=== PATIENT | female | born 1955 | race Caucasian/White ===

== ENCOUNTER → 2016-04-08 | Outpatient (CLI) | payer BC ==
--- NOTE | 2016-04-08 12:01 | EST ---
DATE OF SERVICE: 04/08/2016 AGE: 61Y SEX: F HT: 62" WT: 210 lbs. Protocol Ed: X Other: Stress Stage: 3 Dur. of Exercise: 7:10 *Heart Rate Blood Pressure *Rest: 73 Rest: 123/70 * *Max. Achieved: 141 Maximum BP: 182/85 85% PMHR: 136 100% PMHR: 160 *METS: 8.7 INDICATIONS: Chest pain. MEDICATIONS: Zoloft, Lipitor, Flonase, aspirin. Baseline EKG revealed a normal sinus rhythm with nonspecific precordial T-wave abnormality. Patient walked on standard Ed protocol for 7 minutes 10 seconds, achieved a maximum heart rate of 141 beats per minute, which is more than 85% of predicted maximum. She developed fatigue and shortness of breath, but did not have any angina. EKG did not reveal any ST segment changes to indicate ischemia. There was no arrhythmia. By EKG criteria, this is a negative stress test with fair exercise capacity.
== END | disposition home or self-care (01) ==
LOC: RADNMMAIN 10:29
PROVIDERS: ATTEND Family Medicine
DX: R07.89 Other chest pain (principal)
CPT/HCPCS: 93017

== ENCOUNTER → 2016-05-11 | Outpatient (CLI) | payer BC ==
[2016-05-11 12:42] LABS: CH 30.9; CHCM 34.7; HCT 41.1 % (34.0-46.0); HDW 2.54; MCH 30.4 pg (25.0-35.0); MCHC 34.1 g/dL (31.0-37.0); MCV 89.2 fL (80.0-100.0); Mean Platelet Volume 7.2; RBC 4.61 m/uL (3.80-5.40); RDW 12.3 % (11.5-15.5); WBC 6.7 k/uL (3.8-10.6)
[2016-05-11 13:04] LABS: Anion Gap 14 mmol/L; Blood Urea Nitrogen 14 mg/dL (7-17); Carbon Dioxide 25 mmol/L (22-30); Chloride 103 mmol/L (98-107); Non-African American GFR(MDRD) >60 (>60 ml/min/1.73 sqM); Potassium 4.8 mmol/L (3.5-5.1); Sodium 142 mmol/L (137-145)
== END | disposition home or self-care (01) ==
LOC: LABPAT 12:08
PROVIDERS: ATTEND Internal Medicine Interventional Cardiology
DX: Z01.812 Encounter for preprocedural laboratory examination (principal); R07.9 Chest pain, unspecified; R06.02 Shortness of breath
CPT/HCPCS: 80051; 82565; 84520; 85027

== ENCOUNTER 2016-05-26 06:20 | Day surgery (SDC) | payer BC, OTHER ==
[2016-05-21 11:16] VITALS: BMI 36.6
[~2016-05-26 06:20] MED LIST: ALPRAZolam 0.25 MG TAB PO PRN; ALPRAZolam 0.5 MG TAB PO PRN; ASPIRIN 325 MG TAB PO STA; ATORVASTATIN 80 MG TAB PO STA; NITROGLYCERIN SL TABS 0.4 MG TAB SUBLINGUAL PRN; SODIUM CHLORIDE 0.9% 1,000 ML in EMPTY BAG 1 BAG IV ONE
[2016-05-26 07:08] VITALS: TEMP 97.9
[2016-05-26] MEDS ORDERED: VERAPAMIL 2.5 MG/ML 2 ML AMP ONE (07:12)
[2016-05-26] MEDS ORDERED: LIDOCAINE 2% INJ 20 MG/ML (20 ML MDV) ONE (07:12)
[2016-05-26] MEDS ORDERED: SODIUM CHLORIDE 0.9% (PF) 10 ML VIAL ONE (07:12)
[2016-05-26] MEDS ORDERED: fentaNYL (PF) 50 MCG/ML 2 ML AMP ONE (07:13)
[2016-05-26] MEDS ORDERED: diphenhydrAMINE 50 MG/ML 1 ML VIAL ONE (07:13)
[2016-05-26] MEDS ORDERED: diphenhydrAMINE 50 MG/ML 1 ML VIAL IVP ONE (07:31)
[2016-05-26] MEDS ORDERED: fentaNYL (PF) 50 MCG/ML 2 ML AMP IV ONE (07:31)
[2016-05-26] MEDS: VERAPAMIL SYRINGE (5 MG/10 ML) INTRAARTER ONE ×2 (07:34→07:51)
[2016-05-26] MEDS ORDERED: HEPARIN SODIUM 1,000 UNIT/ML VIAL ONE (07:34)
[2016-05-26] MEDS ORDERED: LIDOCAINE 2% INJ 20 MG/ML SQ ONE (07:40)
[2016-05-26] MEDS ORDERED: IOHEXOL 350 MG/ML 100 ML BOTTLE INJ ONE (08:09)
[2016-05-26] MEDS ORDERED: RX INFO: IV CONTRAST WAS GIVEN 1 EACH MISC MISCELLANE PRN (08:25)
[2016-05-26] MEDS ORDERED: SODIUM CHLORIDE 0.9% 1,000 ML IV SCH (08:30)
--- NOTE | 2016-05-26 08:32 | CC ---
DATE OF SERVICE: Mrs. Valerio is a 61-year-old female with known history of hyperlipidemia. Family history of coronary artery disease who has been complaining of chest discomfort was physical activity associated with dyspnea radiating to the left arm. Because of her persistent symptoms, recommendations regarding cardiac catheterization, the procedure as well as risks and complications were discussed with the patient who is in full understanding and agreement. PROCEDURE: Patient was brought to the [facility] [employer] [facility] in a fasting semi-sedated state after receiving fentanyl and Benadryl. She was draped and prepped in conventional fashion. Using Xylocaine anesthesia and Seldinger technique, a 6 Hungarian sheath was introduced in the right radial artery. Selective right and left coronary angiography was performed using 5 Hungarian 3-1/2 Bend right Tori catheter and a 5 Hungarian multipurpose V2 to cannulate the left coronary. There was severe tortuosity preventing the advancement of 3.5 Tori and the Leila catheter. Images of the coronary arteries including hemiaxial views were obtained. Following that, a 5 Hungarian tight pigtail catheter was introduced into the left ventricle and a 30 degree GURROLA view of the left ventricle was obtained. Following that, catheter and sheaths were removed. Hemostasis was obtained with deployment of TR band. There was no complication. Patient is returned to her room in stable condition. Of note, patient received 45 units of intravenous heparin as well as intra-arterial verapamil. FINDINGS: LEFT MAIN: This is a large-size vessel bifurcating into the left circumflex, left anterior descending artery. The left main coronary artery is without any obstructive disease. LEFT ANTERIOR DESCENDING ARTERY: This is a large-size vessel reaching toward the apex, tapers down the distal third giving rise to a moderately-sized diagonal branch. The left anterior descending artery as well as branches have no evidence of obstructive lung disease. LEFT CIRCUMFLEX: This is a nondominant vessel, giving rise to 2 obtuse marginal branches. The left circumflex as well as branches have no evidence of obstructive lung disease. RIGHT CORONARY ARTERY: This is a large dominant vessel bifurcating distally to into PDA and posterolateral segment and branches. The right coronary artery as well as its branches have no evidence of obstructive coronary artery disease. LEFT VENTRICULOGRAM: Left ventriculogram was performed in 30 degree GURROLA view and revealed normal left ventricular size and systolic function. Ejection fraction is 60%. There was no significant mitral regurgitation. HEMODYNAMICS: There was no gradient across the aortic valve. The left ventricle end-diastolic pressure was 12 mmHg. The duration of the procedure was 30 minutes. IMPRESSION: 1. Normal coronary arteries. 2. Normal left ventricular size and systolic function. RECOMMENDATIONS: In view of finding anatomy, recommend to continue medical therapy with the aggressive risk modifications being initiated. Those findings and recommendations were discussed with the patient and her family who is in full understanding and agreement.
--- NOTE | 2016-05-26 08:35 | LTR ---
May 26, 2016 RE: Madhuri Valerio Dear Dr. Moreno; I had the pleasure to perform cardiac catheterization on Mrs. Valerio at [facility] on May 26, 2016 and a full copy of the procedure note will be forwarded to you. In brief, she was found to have no evidence of obstructive coronary artery disease with normal left ventricular size and systolic function and in view of that, I have recommended to continue medical therapy with aggressive coronary risk modification that has been initiated. Thank you again for allowing me to participate in this patient's care. Please feel free to call for any questions. Sincerely yours, MARISOL SEVERINO MD
[2016-05-26] MEDS ORDERED: MOMETASONE FUROATE NASAL SCH (09:00)
[2016-05-26] MEDS ORDERED: VIT A,C & E-LUTEIN-MINERALS 1 EACH TAB PO SCH (09:00)
[2016-05-26] MEDS ORDERED: CHOLECALCIFEROL 1,000 UNIT TAB PO SCH (12:00)
[2016-05-26 12:32] VITALS: BP 123/85; PULSE 60; RESP 16
[2016-05-26] MEDS ORDERED: ATORVASTATIN 20 MG TAB PO SCH (21:00)
[2016-05-27] MEDS ORDERED: ASPIRIN 81 MG CHEW PO SCH (09:00)
[2016-05-27] MEDS ORDERED: SERTRALINE 25 MG TAB PO SCH (09:00)
[2016-05-27] MEDS ORDERED: ISOSORBIDE MONONITRATE ER 15 MG TAB PO SCH (09:00)
--- NOTE | 2016-05-28 07:50 | CDI ---
Pt Name: Madhuri Valerio CONFIDENTIAL MR#: [id number] Adm Date: 05/26/2016 6:20:00 AM Printed:05/28/2016 Physician Documentation Request Page 1 of 1 ICD-10-CM Ready Physicians Documentation Request Patient: Madhuri Valerio EPI: [id number] Account: [id number] Payer: [facility] Facility: [facility] Location: - Admit Date: 05/26/2016 6:20:00 AM Query Send By: Herlinda Mart Phone #: Ext. Communication Date: 05/28/2016 7:44:00 AM Clarification Outpatient By submitting this query, we are merely seeking further clarification of documentation to accurately reflect all conditions that you are monitoring, evaluating, treating or that extend the hospitalization or utilize additional resources of care. Please utilize your independent clinical judgment when addressing the question(s) below. Dear Doctor Angel Cordoba, The patients Clinical Indicators include: see below Documentation Clarification OP The cardiac cath report states the patient was in a "semi-sedated state after receiving fentanyl and Benadryl." Please clarify what level of sedation was used for this procedure, such as moderate. This is important information in order to accurately code and bill for this encounter. Please issue an addendum to your report. Thank you! PLEASE DOCUMENT ANY ADDITIONAL DIAGNOSES AND/OR SPECIFICITY IN THE PROGRESS NOTES AND/OR DISCHARGE SUMMARY. Agreed & documented Unable to determine/unknown Disagree with the above request Need to discuss MTDD
--- NOTE | 2016-06-02 14:57 | CDI ---
Pt Name: Madhuri Valerio CONFIDENTIAL MR#: [id number] Adm Date: 05/26/2016 6:20:00 AM Printed:06/02/2016 Physician Documentation Request Page 1 of 2 ICD-10-CM Ready Physicians Documentation Request Patient: Madhuri Valerio EPI: [id number] Account: [id number] Payer: [facility] Facility: [facility] Location: - Admit Date: 05/26/2016 6:20:00 AM Query Send By: Herlinda Mart Phone #: Ext. Communication Date: 06/02/2016 2:54:00 PM Clarification Outpatient By submitting this query, we are merely seeking further clarification of documentation to accurately reflect all conditions that you are monitoring, evaluating, treating or that extend the hospitalization or utilize additional resources of care. Please utilize your independent clinical judgment when addressing the question(s) below. Dear Doctor Angel Cordoba, The patients Clinical Indicators include: see below Documentation Clarification OP The cardiac cath report states the patient was in a "semi-sedated state after receiving fentanyl and Benadryl." Please clarify what level of sedation was used for this procedure, such as moderate. This is important information in order to accurately code and bill for this encounter. Please issue an addendum to your report. Thank you! PLEASE DOCUMENT ANY ADDITIONAL DIAGNOSES AND/OR SPECIFICITY IN THE PROGRESS NOTES AND/OR DISCHARGE SUMMARY. Agreed & documented Unable to determine/unknown Disagree with the above request Need to discuss MTDD
--- NOTE | 2016-06-09 08:31 | CDI ---
Physicians Documentation Request Patient: Madhuri Valerio EPI: [id number] Account: [id number] Payer: [facility] Facility: [facility] Location: - Admit Date: 05/26/2016 6:20:00 AM Query Send By: Herlinda Mart Phone #: Ext. Communication Date: 06/09/2016 8:27:00 AM Clarification Outpatient By submitting this query, we are merely seeking further clarification of documentation to accurately reflect all conditions that you are monitoring, evaluating, treating or that extend the hospitalization or utilize additional resources of care. Please utilize your independent clinical judgment when addressing the question(s) below. Dear Doctor Angel Cordoba, The patients Clinical Indicators include: see below Documentation Clarification OP The cardiac cath report states "semi-sedated state after receiving fentanyl and Benadryl." Will you please clarify the level of sedation, such as moderate. This information is required for proper coding and billing purposes. Please answer as an addendum to your op report. If you don't understand what is needed , please contact my showplace manager, Vandana Garcia . Thank you. PLEASE DOCUMENT ANY ADDITIONAL DIAGNOSES AND/OR SPECIFICITY IN THE PROGRESS NOTES AND/OR DISCHARGE SUMMARY. Agreed & documented Unable to determine/unknown Disagree with the above request Need to discuss MTDD
--- NOTE | 2016-06-12 11:33 | CC ---
ADDENDUM TO CARDIAC CATHETERIZATION REPORT: The sedation was moderate instead of semi-sedated.
== END 2016-05-26 13:17 | disposition home or self-care (01) ==
LOC: CATHCVL 06:20
PROVIDERS: ATTEND Internal Medicine Interventional Cardiology
DX: I20.8 Other forms of angina pectoris (principal); R06.00 Dyspnea, unspecified; R53.1 Weakness; R11.0 Nausea; R42 Dizziness and giddiness; E78.2 Mixed hyperlipidemia; Z82.49 Family history of ischemic heart disease and other diseases of the circulatory system; E78.00 Pure hypercholesterolemia, unspecified; Z79.82 Long term (current) use of aspirin; Z79.899 Other long term (current) drug therapy; Z87.891 Personal history of nicotine dependence
CPT/HCPCS: 93458; 99152; 99153 ×2; C1894; C1769 ×2; J2001; J1200; Q9967; J3010; J1644

== ENCOUNTER → 2016-07-01 | Outpatient (CLI) | payer BC ==
--- NOTE | 2016-07-01 12:50 | MM ---
Reason for exam: follow-up at short interval from prior study. Last mammogram was performed 6 months ago. History: Patient is postmenopausal. Family history of breast cancer in aunt at age 80 and breast cancer in mother at age 72. Physical Findings: Nurse did not find any significant physical abnormalities on exam. MG Diagnostic Mammo RT w CAD CC and MLO view(s) were taken of the right breast. Prior study comparison: December 30, 2015, right breast MG work up mamm w CAD RT. December 20, 2015, bilateral MG screening mammo w CAD. The breast tissue is heterogeneously dense. This may lower the sensitivity of mammography. Finding: There are typically benign round calcifications in the right breast. There is no discrete abnormality. These results were verbally communicated with the patient and result sheet given to the patient on 07/01/16. ASSESSMENT: Benign, BI-RAD 2 RECOMMENDATION: Return to routine screening mammogram schedule for both breasts. Back on schedule.
== END | disposition home or self-care (01) ==
LOC: RADMAMWWP 10:15
PROVIDERS: ATTEND Family Medicine
DX: R92.8 Other abnormal and inconclusive findings on diagnostic imaging of breast (principal)

== ENCOUNTER → 2016-12-24 | Outpatient (CLI) | payer BC ==
--- NOTE | 2016-12-28 10:56 | MM ---
Reason for exam: screening (asymptomatic). Last mammogram was performed 6 months ago. History: Patient is postmenopausal. Family history of breast cancer in aunt at age 80 and breast cancer in mother at age 72. Physical Findings: A clinical breast exam by your physician is recommended on an annual basis and results should be correlated with mammographic findings. MG Screening Mammo w CAD Bilateral CC and MLO view(s) were taken. Prior study comparison: December 20, 2015, bilateral MG screening mammo w CAD. August 31, 2014, bilateral MG screening mammo w CAD. August 03, 2013, bilateral MG screening mammo w CAD. The breast tissue is heterogeneously dense. This may lower the sensitivity of mammography. Finding: There are typically benign round calcifications in both breasts. There is a chronic nodularity in the left breast. There is no discrete abnormality. ASSESSMENT: Benign, BI-RAD 2 RECOMMENDATION: Routine screening mammogram of both breasts in 1 year.
== END | disposition home or self-care (01) ==
LOC: RADMAMWWP 09:40
PROVIDERS: ATTEND Family Medicine
DX: Z12.31 Encounter for screening mammogram for malignant neoplasm of breast (principal)

== ENCOUNTER 2017-07-07 09:29 | Day surgery (SDC) | payer BC ==
[2017-07-06 10:35] VITALS: BMI 32.9
[~2017-07-07 09:29] MED LIST changes: -ALPRAZolam 0.25 MG TAB PO PRN; -ALPRAZolam 0.5 MG TAB PO PRN; -ASPIRIN 325 MG TAB PO STA; -ATORVASTATIN 80 MG TAB PO STA; +LACTATED RINGERS 1,000 ML IV SCH; +LIDOCAINE 1% 20 ML VIAL (10MG/ML) FOR IV START INTRADERMA PRN; -NITROGLYCERIN SL TABS 0.4 MG TAB SUBLINGUAL PRN; -SODIUM CHLORIDE 0.9% 1,000 ML in EMPTY BAG 1 BAG IV ONE
[2017-07-07 10:32] VITALS: TEMP 97.6
[2017-07-07] MEDS ORDERED: PROPOFOL 10 MG/ML 20 ML VIAL IV ONE (11:05)
--- NOTE | 2017-07-07 11:16 | P.PCN ---
Date of Procedure: 07/07/17 Procedure(s) Performed: BRIEF HISTORY: Patient is a 62-year-old, pleasant, white female, scheduled for an upper endoscopy as a part of evaluation of throat irritation, throat discomfort and intermittent dysphagia for the last 2 months duration. She denies any heartburn.. PROCEDURE PERFORMED: Esophagogastroduodenoscopy with biopsy. PREOPERATIVE DIAGNOSIS: Throat irritation and intermittent dysphagia to solids. IV sedation per anesthesia. PROCEDURE: After informed consent was obtained, the patient was brought into the endoscopy unit. IV sedation was administered by Anesthesia under continuous monitoring. Initially the Olympus GIF-140 video endoscope was inserted into the mouth. Esophagus intubated without any difficulty. It was gradually advanced into the stomach and duodenum and carefully examined. The bulb and the second part of the duodenum appeared normal. The scope at this time was withdrawn to the stomach, adequately insufflated with air, and upon careful examination, mucosa of the antrum, had scattered areas of erythema and biopsies were done from this area. The body, cardia and the fundus appeared normal. The scope was then withdrawn into the esophagus. Small sliding Hiatal hernia noted. The GE junction was located at 39 cm from the incisors. There was circumferential erythema the GE junction consistent with LA grade a reflux esophagitis. The rest of the esophagus appeared normal. Biopsies were done from the mid and distal esophagus and the patient tolerated the procedure well. IMPRESSION: 1. Mild antral gastritis. 2. Circumferential erythema the GE junction consistent with LA grade A reflux esophagitis and small hiatal hernia . RECOMMENDATIONS: The findings of this examination were discussed with the patient as well as her family. She was advised to follow with the biopsy results. Her symptoms may be related to GERD and hence she was advised to stop the Zantac and try Prilosec 20 mg daily half hour before breakfast for 8 weeks .
[2017-07-07 11:46] VITALS: RESP 16
[2017-07-07 11:47] VITALS: BP 120/66; PULSE 66
== END 2017-07-07 12:05 | disposition home or self-care (01) ==
LOC: ORWHC2ENDO 09:29
PROVIDERS: ATTEND Internal Medicine Gastroenterology
DX: K21.0 Gastro-esophageal reflux disease with esophagitis (principal); K29.50 Unspecified chronic gastritis without bleeding; K44.9 Diaphragmatic hernia without obstruction or gangrene; I10 Essential (primary) hypertension; E78.5 Hyperlipidemia, unspecified; Z79.51 Long term (current) use of inhaled steroids; Z79.899 Other long term (current) drug therapy
CPT/HCPCS: 88305; 43239; J2704

== ENCOUNTER → 2017-08-04 | Outpatient (CLI) | payer BC ==
--- NOTE | 2017-08-05 08:28 | CT ---
EXAMINATION TYPE: CT soft tissue neck w con DATE OF EXAM: 08/04/2017 HISTORY: Dysphagia, feeling of choking and reduced appetite x 3 months. COMPARISON: NONE CT DLP: 362.4 mGycm. Automated Exposure Control for Dose Reduction was Utilized. TECHNIQUE: CT scan of the neck is performed with IV Contrast, patient injected with 100 mL of Isovue M300, axial images are obtained, coronal and sagittal reformatted images are reviewed. FINDINGS: Airway: True and false vocal cords are unremarkable. Slight asymmetry of the vallecula is likely rela maria ines to patient positioning as no discrete mass is identified. Piriform sinuses are patent. No hypertr ophy of the tonsils. Torus tubarius and fossa of Rosenmuller are overall symmetric. Parotid/submandibular glands: No gross abnormality seen. Carotid/Vascular Structures: There is an aberrant subclavian artery with mass effect upon the upper c ervical esophagus impinging the esophagus between the trachea and the aberrant subclavian artery. Thi s can result in dysphagia lusoria. 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 Bilateral vertebral arteries appear patent. There is slight left carmine nant visualized [place] appears intact in its limited visualized portions. The carotid arter ies demonstrate no hemodynamically significant stenosis. Osseous Structures: The bladder mucosal thickening is seen within the paranasal sinuses including the visualized maxillary, ethmoid, and sphenoid sinuses. The frontal sinuses are aplastic. Moderate mult ilevel degenerative changes of the cervical spine are noted. Other: Lung apices demonstrate very minimal centrilobular emphysematous change. Nonenlarged left supr aclavicular lymph nodes are present. IMPRESSION: 1. 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 T his impinges the esophagus between the trachea and the aberrant subclavian artery. This may create dy sphasia (dysphagia lusoria). 2. Airway is patent and unremarkable. 3. Moderate pansinusitis.
== END ==
LOC: RADCTMAIN 18:30
PROVIDERS: ATTEND Family Medicine
DX: Q27.8 Other specified congenital malformations of peripheral vascular system (principal)
CPT/HCPCS: 70491; Q9967

== ENCOUNTER → 2018-01-27 | Outpatient (CLI) | payer BC, OTHER ==
--- NOTE | 2018-01-28 12:13 | MM ---
Reason for exam: screening (asymptomatic). Last mammogram was performed 1 year and 1 month ago. History: Patient is postmenopausal. Family history of breast cancer in aunt at age 80 and breast cancer in mother at age 72. Physical Findings: A clinical breast exam by your physician is recommended on an annual basis and results should be correlated with mammographic findings. MG 3D Screening Mammo W/Cad Bilateral CC and MLO view(s) were taken. Prior study comparison: December 24, 2016, bilateral MG screening mammo w CAD. July 01, 2016, right breast MG diagnostic mammo RT w CAD. The breast tissue is heterogeneously dense. This may lower the sensitivity of mammography. Stable benign calcifications. There is no discrete abnormality. No significant changes when compared with prior studies. ASSESSMENT: Benign, BI-RAD 2 RECOMMENDATION: Routine screening mammogram of both breasts in 1 year.
== END ==
LOC: RADMAMWWP 07:35
PROVIDERS: ATTEND Family Medicine
DX: Z12.31 Encounter for screening mammogram for malignant neoplasm of breast (principal)
CPT/HCPCS: 77063; 77067

== ENCOUNTER 2018-10-14 10:29 | Day surgery (SDC) | payer BC, OTHER ==
[2018-10-12 14:49] VITALS: BMI 29.6
[2018-10-14] MEDS ORDERED: ONDANSETRON 4 MG/2 ML VIAL IVP ONE (10:58)
[2018-10-14 11:20] VITALS: TEMP 98
[2018-10-14] MEDS ORDERED: LIDOCAINE 1% INJ 10MG/ML (20 ML MDV) ONE (11:20)
[2018-10-14] MEDS ORDERED: PROPOFOL 10 MG/ML 20 ML VIAL IV ONE (11:20)
[2018-10-14] MEDS ORDERED: IV FLUID CONTINUATION 800 ML IV ONE (11:53)
--- NOTE | 2018-10-14 12:05 | P.PCN ---
Date of Procedure: 10/14/18 Procedure(s) Performed: NBRIEF HISTORY: Patient is a 63-year-old pleasant white female, scheduled for an elective colonoscopy as a part of screening for colorectal neoplasia. PROCEDURE PERFORMED: Colonoscopy with snare polypectomy. PREOPERATIVE DIAGNOSIS: Screening for colon cancer. IV sedation per Anesthesia. PROCEDURE: After informed consent was obtained, the patient, was brought into the endoscopy unit. IV sedation was administered by Anesthesia under continuous monitoring. Digital rectal examination was normal. Initially the Olympus CF-160 flexible video colonoscope was then inserted in the rectum, gradually advanced into the cecum without any difficulty. Careful examination was performed as the scope was gradually being withdrawn. Ileocecal valve and the appendiceal orifice were visualized and appeared normal. Prep was excellent. Mucosa of the cecum, appeared normal. In the ascending colon there was a 1 cm broad-based polyp removed by snare polypectomy. In the transverse colon there was a 5 mm polyp removed by snare polypectomy. Rest of ascending colon, transverse colon, shana cending colon, sigmoid colon, and rectum appeared normal. Retroflexion was performed in the rectum and no lesions were seen. Scattered left-sided diverticulosis seen. The patient tolerated the procedure well. IMPRESSION: 1 cm broad-based ascending colon polyp status post polypectomy 5 mm transverse colon polyp status post polypectomy Scattered sigmoid diverticulosis RECOMMENDATIONS: Findings of this examination were discussed with the patient as well as a family. She was advised to follow with the biopsy results. If the biopsy shows an adenoma, she can have a repeat colonoscopy in 3-5 years. o
[2018-10-14 12:15] VITALS: RESP 18
[2018-10-14 12:53] VITALS: BP 122/60; PULSE 60
== END 2018-10-14 12:22 | disposition home or self-care (01) ==
LOC: ORWHC2ENDO 10:29
PROVIDERS: ATTEND Internal Medicine Gastroenterology
DX: Z12.11 Encounter for screening for malignant neoplasm of colon (principal); D12.2 Benign neoplasm of ascending colon; K63.5 Polyp of colon; K57.30 Diverticulosis of large intestine without perforation or abscess without bleeding; E78.5 Hyperlipidemia, unspecified; I25.10 Atherosclerotic heart disease of native coronary artery without angina pectoris; K21.9 Gastro-esophageal reflux disease without esophagitis; Z79.82 Long term (current) use of aspirin; Z79.899 Other long term (current) drug therapy
CPT/HCPCS: 88305; 45385; J2405; J2001; J2704

== ENCOUNTER → 2019-03-07 | Outpatient (CLI) | payer BC ==
--- NOTE | 2019-03-08 13:49 | MM ---
Reason for exam: screening (asymptomatic). Last mammogram was performed 1 year and 1 month ago. History: Patient is postmenopausal. Family history of breast cancer in aunt at age 80 and breast cancer in mother at age 72. Physical Findings: A clinical breast exam by your physician is recommended on an annual basis and results should be correlated with mammographic findings. MG 3D Screening Mammo W/Cad Bilateral CC and MLO view(s) were taken. Prior study comparison: January 27, 2018, bilateral MG 3d screening mammo w/cad. December 24, 2016, bilateral MG screening mammo w CAD. The breast tissue is heterogeneously dense. This may lower the sensitivity of mammography. Finding #1: There is a 9 mm obscured oval mass located 5-6 cm from the nipple in the middle position of the right breast. Finding #2: There are typically benign round calcifications in both breasts. New finding since January 27, 2018. ASSESSMENT: Incomplete: need additional imaging evaluation, BI-RAD 0 RECOMMENDATION: Special view mammogram and ultrasound of the right breast. [facility] will attempt to contact patient to return for supplemental views and ultrasound.
== END | disposition home or self-care (01) ==
LOC: RADMAMWWP 07:19
PROVIDERS: ATTEND Family Medicine
DX: Z12.31 Encounter for screening mammogram for malignant neoplasm of breast (principal)
CPT/HCPCS: 77063; 77067

== ENCOUNTER → 2019-03-31 | Outpatient (CLI) | payer BC ==
--- NOTE | 2019-03-31 11:06 | MM ---
Reason for exam: additional evaluation requested from abnormal screening. Last mammogram was performed 1 month ago. History: Patient is postmenopausal. Family history of breast cancer in aunt at age 80 and breast cancer in mother at age 72. Physical Findings: Nurse did not find any significant physical abnormalities on exam. MG 3D Work Up W/Cad RT Spot compression CC, spot compression MLO, and ML view(s) were taken of the right breast. Prior study comparison: March 07, 2019, bilateral MG 3d screening mammo w/cad. January 27, 2018, bilateral MG 3d screening mammo w/cad. The breast tissue is heterogeneously dense. This may lower the sensitivity of mammography. No distinct lesion persists on additional views. These results were verbally communicated with the patient and result sheet given to the patient on 03/31/19. ASSESSMENT: Benign, BI-RAD 2 RECOMMENDATION: Return to routine screening mammogram schedule for both breasts.
== END | disposition home or self-care (01) ==
LOC: RADMAMWWP 10:12
PROVIDERS: ATTEND Family Medicine
DX: R92.8 Other abnormal and inconclusive findings on diagnostic imaging of breast (principal)
CPT/HCPCS: 77061; 77065

== ENCOUNTER 2019-06-08 13:14 | Emergency (ER) | payer BC ==
[2019-06-08 13:20] VITALS: BP 130/80; PULSE 69; RESP 18; TEMP 98.2
--- NOTE | 2019-06-08 13:50 | XR ---
EXAMINATION TYPE: XR ankle complete LT DATE OF EXAM: 06/08/2019 CLINICAL HISTORY: Twisting injury today with pain. TECHNIQUE: Frontal, lateral and oblique images of the left ankle are obtained. COMPARISON: None. FINDINGS: There is no acute fracture/dislocation evident in the left ankle. The ankle mortise appea rs within normal limits. Moderate soft tissue swelling over the lateral malleolus. Moderate to large size inferior calcaneal spur. IMPRESSION: There is soft tissue swelling without acute fracture or dislocation in the left ankle.
--- NOTE | 2019-06-08 13:52 | XR ---
EXAMINATION TYPE: XR ribs LT DATE OF EXAM: 06/08/2019 COMPARISON: NONE HISTORY: Left rib pain after fall TECHNIQUE: 2 views of the left ribs were obtained FINDINGS: No acute displaced fracture is seen of the left ribs. Mild acromioclavicular arthropathy on the left is incidentally seen. No healed chronic left rib fracture deformity. Left lung remains well aerated. Tortuosity of the descending thoracic aorta is seen. IMPRESSION: No acute displaced left rib fracture seen.
--- NOTE | 2019-06-08 14:08 | ED ---
Lower Extremity Injury HPI - General Chief Complaint: Extremity Injury, Lower Stated Complaint: L ankle Injury Time Seen by Provider: 06/08/19 13:21 Source: patient Mode of arrival: wheelchair Limitations: no limitations - History of Present Illness Initial Comments: Patient is a 64-year-old female presenting to the emergency room with a chief complaint of left ankle pain. Patient reports she was walking down on a step in her basement when she tripped and inverted her left ankle. Patient also reports falling on the left side of her body. Patient reports immediate swelling and pain in the left ankle. Denies any discoloration or ecchymosis. The report applying immediate ice compress which helped alleviate some of the symptoms. Patient reports pain with ambulation dorsiflexion and plantar flexion. She does report limited range of motion. Also reports some left flank pain. Says the pain is reproducible with palpation. Does report taking [id number] analgesics prior to ED arrival. Patient is not on blood thinners. - Related Data Home Medications Medication Instructions Recorded Confirmed Aspirin 81 mg PO DAILY 09/13/13 10/14/18 Atorvastatin [Lipitor] 20 mg PO HS 09/13/13 10/14/18 Cholecalciferol [Vitamin D3] 2,000 unit PO DAILY 09/13/13 10/14/18 Sertraline [Zoloft] 75 mg PO DAILY 09/13/13 10/14/18 Vits A,C,E/Lutein/Minerals 1 each PO DAILY 05/21/16 10/14/18 [Ocuvite with Lutein Tablet] Flaxseed Oil [Sharon-3 Flaxseed Oil] 1,000 mg PO DAILY 07/06/17 10/14/18 Fluticasone Nasal [place] [Flonase 1 spray EA NOSTRIL DAILY PRN 07/06/17 10/14/18 Nasal [place]] Ranitidine HCl [Zantac] 150 mg PO BID 07/06/17 10/14/18 Allergies Allergy/AdvReac Type Severity Reaction Status Date / Time No Known Allergies Allergy Verified 06/08/19 13:20 Review of Systems ROS Statement: Those systems with pertinent positive or pertinent negative responses have been documented in the HPI. ROS Other: All systems not noted in ROS Statement are negative. Past Medical History Past Medical History: Chest Pain / Angina, GERD/Reflux, Hyperlipidemia Additional Past Medical History / Comment(s): DIVERTICULOSIS, ENVIRONMENTAL ALLERGIES. History of Any Multi-Drug Resistant Organisms: None Reported Past Surgical History: Cholecystectomy, Heart Catheterization, Hysterectomy, Tonsillectomy Additional Past Surgical History / Comment(s): laparoscopy, Heart Cath ([facility] 2017) colonoscopy, arterial bypass rt side at [facility], Past Anesthesia/Blood Transfusion Reactions: Postoperative Nausea & Vomiting (PONV) Past Psychological History: Anxiety Smoking Status: Former smoker - Past Family History Mother Family Medical History: Cancer Additional Family Medical History / Comment(s): BREAST CANCER Father Family Medical History: Cancer Additional Family Medical History / Comment(s): PROSTATE CANCER General Exam Limitations: no limitations General appearance: alert, in no apparent distress, obese Head exam: Present: atraumatic, normocephalic, normal inspection Eye exam: Present: normal appearance, PERRL, EOMI Pupils: Present: normal accommodation ENT exam: Present: normal exam Neck exam: Present: normal inspection, full ROM Cardiovascular Exam: Present: regular rate, normal rhythm, normal heart sounds Extremities exam: Present: full ROM (Limited range of motion with dorsi and plantar flexion.), tenderness (Tenderness along the lateral and medial malleolus of the left ankle. No midfoot or fifth metatarsal tenderness.), normal capillary refill, other (+2 dorsalis pedis and posterior tibialis bilaterally.). Absent: normal inspection (Swelling on the lateral malleolus of the left ankle .) Back exam: Present: normal inspection, full ROM Neurological exam: Present: alert, oriented X3 Psychiatric exam: Present: normal affect, normal mood Skin exam: Present: warm, dry, intact, normal color Course Vital Signs 06/08/19 13:18 Temperature 98.2 F Pulse Rate 69 Respiratory 18 Rate Blood Pressure 130/80 O2 Sat by Pulse 99 Oximetry Procedures - Orthopedic Splinting/Casting Injury #1 Side: left Lower Extremity Injury Location: ankle Lower Extremity Immobilizer: Rd wrap Medical Decision Making - Medical Decision Making patient is 64-year-old female presenting to emergency Department with chief complaint of ankle pain. Exam reveals left lateral malleolus pain and swelling. No erythema or ecchymosis. Negative anterior drawer. X-rays unremarkable. She does have some reproducible left flank tenderness. Chest x-ray with dedicated ribs is unremarkable. Rd wrap applied. Patient states urinary has crutches. She was advised to follow with smart energy specialist. Advised to alternate between Tylenol and Motrin for pain control. Return parameters thoroughly discussed with patient was understanding and agreeable. Case discussed with physician. Disposition Clinical Impression: Left ankle sprain, Fall, Left flank pain Disposition: HOME SELF-CARE Condition: Good Instructions (If sedation given, give patient instructions): Ankle Sprain (ED) Additional Instructions: Follow-up with smart energy specialist. Apply ice compresses, alternate between Tylenol and Motrin for pain control, keep the foot elevated above heart level. We are compression on the ankle. Return to emergency department if symptoms worsen Is patient prescribed a controlled substance at d/c from ED?: No Referrals: Ronny Moreno MD [Primary Care Provider] - 1-2 days Time of Disposition: 14:07
== END 2019-06-08 14:20 | disposition home or self-care (01) ==
LOC: EC 13:14
DX: S93.402A Sprain of unspecified ligament of left ankle, initial encounter (principal); R10.9 Unspecified abdominal pain; K21.9 Gastro-esophageal reflux disease without esophagitis; E78.5 Hyperlipidemia, unspecified; F41.9 Anxiety disorder, unspecified; Z79.82 Long term (current) use of aspirin; Z79.899 Other long term (current) drug therapy; Z87.891 Personal history of nicotine dependence; Z95.1 Presence of aortocoronary bypass graft; W01.0XXA Fall on same level from slipping, tripping and stumbling without subsequent striking against object, initial encounter; Y93.01 Activity, walking, marching and hiking
CPT/HCPCS: 99283

== ENCOUNTER → 2019-10-02 | Outpatient (CLI) | payer BC ==
--- NOTE | 2019-10-02 21:37 | MR ---
EXAMINATION TYPE: MR cervical spine wo con DATE OF EXAM: 10/02/2019 COMPARISON: None HISTORY: Headaches, neck Pain and Right arm weakness CONTRAST: Performed utilizing 0 mL intravenous Gadavist gadolinium contrast. TECHNIQUE: Multiplanar multiecho imaging on a 3.0 Marla magnet is performed through the cervical spin e. FINDINGS: The craniovertebral junction is normal. Vertebral body alignment is normal. C7-T1: No focal disc herniation or significant disc bulge is evident. No spinal canal stenosis or n eural foraminal stenosis is present. C6-7: Minimal disc bulging is anterior thecal sac flattening. Minimal cord contact may be present. No spinal canal stenosis present. Mild bilateral foraminal narrowing is present. C5-6: No focal disc herniation or significant disc bulge is evident. No spinal canal stenosis or lorene ral foraminal stenosis is present. C4-5: Minimal disc bulge is present centrally with anterior thecal sac contact. No cord contact or sp inal canal stenosis present. Uncovertebral joint hypertrophy is moderate bilateral foraminal narrowin g.. C3-4: Broad-based disc bulge has minimal anterior thecal sac contact. No AP spinal canal stenosis or neural foraminal stenosis is present.. C2-3: No focal disc herniation or significant disc bulge is evident. No spinal canal stenosis or lorene ral foraminal stenosis is present. IMPRESSIONS: 1. Uncovertebral joint hypertrophy contributing to foraminal stenosis greatest at C4-5 2. Multilevel disc bulging may have some minimal cord contact at C6-7.
== END | disposition home or self-care (01) ==
LOC: RADMRIMAIN 17:41
PROVIDERS: ATTEND Family Medicine
DX: M48.02 Spinal stenosis, cervical region (principal); M50.11 Cervical disc disorder with radiculopathy, high cervical region; M47.22 Other spondylosis with radiculopathy, cervical region
CPT/HCPCS: 72141

== ENCOUNTER → 2020-04-12 | Outpatient (CLI) | payer BC ==
--- NOTE | 2020-04-15 09:32 | MM ---
Reason for exam: screening (asymptomatic). Last mammogram was performed 1 year ago. History: Patient is postmenopausal. Family history of breast cancer in aunt at age 80 and breast cancer in mother at age 72. Physical Findings: A clinical breast exam by your physician is recommended on an annual basis and results should be correlated with mammographic findings. MG 3D Screening Mammo W/Cad Bilateral CC and MLO view(s) were taken. Prior study comparison: March 31, 2019, right breast MG 3d work up w/cad RT. March 07, 2019, bilateral MG 3d screening mammo w/cad. The breast tissue is heterogeneously dense. This may lower the sensitivity of mammography. Stable benign calcifications. There is no discrete abnormality. No significant changes when compared with prior studies. ASSESSMENT: Benign, BI-RAD 2 RECOMMENDATION: Routine screening mammogram of both breasts in 1 year.
== END | disposition home or self-care (01) ==
LOC: RADMAMWWP 07:51
PROVIDERS: ATTEND Family Medicine
DX: Z12.31 Encounter for screening mammogram for malignant neoplasm of breast (principal)
CPT/HCPCS: 77063; 77067

== ENCOUNTER → 2020-06-28 | Outpatient (CLI) | payer BC ==
--- NOTE | 2020-06-28 14:28 | CT ---
EXAMINATION TYPE: CT abdomen pelvis wo con DATE OF EXAM: 06/28/2020 COMPARISON: 03/08/1949 HISTORY: Left sided abdominal pain with history of diverticulitis. CT DLP: 619.4 mGycm Automated exposure control for dose reduction was used. TECHNIQUE: Helical acquisition of images was performed from the lung bases through the pelvis. FINDINGS: LUNG BASES: No significant abnormality is appreciated. LIVER/GB: Postcholecystectomy changes noted. PANCREAS: No significant abnormality is seen. SPLEEN: No significant abnormality is seen. ADRENALS: No significant abnormality is seen. KIDNEYS: No significant abnormality is seen. ADENOPATHY: None visualized. OSSEOUS STRUCTURES: Hypertrophic and degenerative change of the spine. BOWEL: Bowel gas pattern nonspecific with changes of diverticulosis but no diagnostic evidence of di verticulitis. No evidence of obstruction.. OTHER: Aorta of normal caliber IMPRESSION: 1. Diverticulosis with no CT evidence of diverticulitis. 2. Post cholecystectomy
== END | disposition home or self-care (01) ==
LOC: RADCTMAIN 13:13
PROVIDERS: ATTEND Family Medicine
DX: K57.90 Diverticulosis of intestine, part unspecified, without perforation or abscess without bleeding (principal); Z90.49 Acquired absence of other specified parts of digestive tract
CPT/HCPCS: 74176

== ENCOUNTER → 2021-08-14 | Outpatient (CLI) | payer MEDICARE ==
--- NOTE | 2021-08-15 11:36 | MM ---
Reason for Exam: Screening (asymptomatic). Last mammogram was performed 1 year(s) and 4 month(s) ago. Patient History: Menarche at age 13. First Full-Term at age 18. Left ovary removed at age 52. Right ovary removed at age 52. Hysterectomy at age 52. Postmenopausal. Maternal aunt had breast cancer, age 80. Mother had breast cancer, age 72. Risk Values: Adela 5 year model risk: 3.1%. NCI Lifetime model risk: 11.4%. Film Views: Bilateral CC views were taken. Bilateral MLO views were taken. Prior Study Comparison: 03/07/2019 Bilateral Screening Mammogram, [facility]. 03/31/2019 Right Diagnostic Mammogram, [facility]. 04/12/2020 Bilateral Screening Mammogram, [facility]. Tissue Density: The breast tissue is heterogeneously dense. This may lower the sensitivity of mammography. Findings: Analyzed By CAD. The upper outer left breast seen on MLO view there is an oval circumscribed mass measuring 4 mm approximately 5 cm from the nipple. No other significant interval change. Overall Assessment: Incomplete: need additional imaging evaluation, BI-RAD 0 Management: Diagnostic Breast Ultrasound of the left breast. A clinical breast exam by your physician is recommended on an annual basis and results should be correlated with mammographic findings. Electronically signed and approved by: Jose G Orta M.D. Radiologis
== END | disposition home or self-care (01) ==
LOC: RADMAMWWP 17:16
PROVIDERS: ATTEND Family Medicine
DX: Z12.31 Encounter for screening mammogram for malignant neoplasm of breast (principal)
CPT/HCPCS: 77063; 77067

== ENCOUNTER → 2021-08-22 | Outpatient (CLI) | payer MEDICARE ==
--- NOTE | 2021-08-22 13:24 | USB ---
Reason for Exam: Additional evaluation requested from abnormal screening. Patient History: Menarche at age 13. First Full-Term at age 18. Left ovary removed at age 52. Right ovary removed at age 52. Hysterectomy at age 52. Postmenopausal. Maternal aunt had breast cancer, age 80. Mother had breast cancer, age 72. Risk Values: Adela 5 year model risk: 3.1%. NCI Lifetime model risk: 11.4%. Technique: Method: Targeted. Prior Study Comparison: 03/31/2019 Right Diagnostic Mammogram, [facility]. 04/12/2020 Bilateral Screening Mammogram, [facility]. 08/14/2021 Bilateral MG 3D screening mammo w/cad, [facility]. Findings: The upper outer quadrant of the left breast, the axilla of the left breast and the retroareolar of the left breast were scanned. left breast 1200 4 cfn= 0.3 x 0.5 x 0.2 cm hypoechoic area, nonvascularThere is a 0.8 x 0.3 x 0.3 cm area 6 cm from the nipple 2:00 position may be an intramammary lymph node. This may correlate with the mammographic findings. There is a hypoechoic grouping measuring 0.5 basis 0.2 x 0.3 cm may be a cluster of small cysts.. Overall Assessment: Probably benign, BI-RAD 3 Management: Diagnostic Mammogram of the left breast in 6 months. Diagnostic Breast Ultrasound of the left breast in 6 months. A clinical breast exam by your physician is recommended on an annual basis and results should be correlated with mammographic findings. Electronically signed and approved by: Hair Rai D.O. Radiologis
== END | disposition home or self-care (01) ==
LOC: RADUSWWP 12:48
PROVIDERS: ATTEND Family Medicine
DX: R92.8 Other abnormal and inconclusive findings on diagnostic imaging of breast (principal); Z78.0 Asymptomatic menopausal state; Z80.3 Family history of malignant neoplasm of breast; Z90.721 Acquired absence of ovaries, unilateral

== ENCOUNTER → 2022-01-03 | Outpatient (CLI) | payer MEDICARE ==
--- NOTE | 2022-01-04 15:02 | MR ---
EXAMINATION TYPE: MR cervical spine wo con DATE OF EXAM: 01/03/2022 COMPARISON: Prior MR cervical spine 10/02/2019 HISTORY: Neck pain, headaches. TECHNIQUE: Multiplanar, multisequence images of the cervical spine were acquired without contrast. C2-C3: Facet arthropathy causes some encroachment on the left neural foramen. No evident disc herniat ion. C3-C4: Uncovertebral joint hypertrophy and facet arthropathy results in some foraminal encroachment r ight greater than left. Posterior disc bulge causes slight anterior mass effect on the thecal sac sim ilar to prior exam. C4-C5: Facet arthropathy and uncovertebral joint hypertrophy resulting in bilateral foraminal encroac hment similar to prior exam. Posterior extension of central disc bulge causes mild anterior mass effe ct on the thecal sac. Loss of disc height signal is similar to prior exam. C5-C6: There is some loss of disc height and signal consistent with disc desiccation and degenerative disc disease. Small posterior disc bulge causes slight anterior mass effect on the thecal sac. No si gnificant foraminal encroachment. C6-C7: Posterior extension endplate disc complex causes mild anterior mass effect on the thecal sac. Uncovertebral joint hypertrophy causes bilateral foraminal encroachment. Loss of disc height signal i s consistent with disc desiccation and degenerative disc disease. C7-T1: Posterior extension endplate disc complex causes mild anterior mass effect on the thecal sac. No significant foraminal encroachment. Cervical segments are intact. There is normal alignment. Cervical spinal cord is of normal signal. Craniovertebral junction relationships are within normal limits. Multilevel spondylosis is again no maria ines with some endplate discogenic marrow signal change. No significant spinal stenosis. IMPRESSION: Degenerative disease, multilevel foraminal encroachment is similar to prior exam.
== END | disposition home or self-care (01) ==
LOC: RADMRIMAIN 10:24
PROVIDERS: ATTEND Family Medicine
DX: M47.812 Spondylosis without myelopathy or radiculopathy, cervical region (principal)
CPT/HCPCS: 72141

== ENCOUNTER → 2022-04-13 | Outpatient (CLI) | payer MEDICARE ==
--- NOTE | 2022-04-13 10:51 | MM ---
Reason for Exam: Follow-up at short interval from prior study. Last screening mammogram was performed 8 month(s) ago. Patient History: Menarche at age 13. First Full-Term at age 18. Left ovary removed at age 52. Right ovary removed at age 52. Hysterectomy at age 52. Postmenopausal. Maternal aunt had breast cancer, age 80. Maternal aunt had breast cancer at or over age 50. Mother had breast cancer, age 72. Mother had breast cancer at or over age 50. Risk Values: Adela 5 year model risk: 7.9%. NCI Lifetime model risk: 25.7%. Prior Study Comparison: 12/20/2015 Bilateral Screening Mammogram, [facility]. 12/30/2015 Right Diagnostic Mammogram, [facility]. 07/01/2016 Right Diagnostic Mammogram, [facility]. 12/24/2016 Bilateral Screening Mammogram, [facility]. 01/27/2018 Bilateral Screening Mammogram, [facility]. 03/07/2019 Bilateral Screening Mammogram, [facility]. 03/31/2019 Right Diagnostic Mammogram, [facility]. 04/12/2020 Bilateral Screening Mammogram, [facility]. 08/14/2021 Bilateral MG 3D screening mammo w/cad, [facility]. Tissue Density: Left: The breast tissue is heterogeneously dense. This may lower the sensitivity of mammography. Findings: Analyzed By CAD. Benign-appearing left axillary lymph nodes are redemonstrated. Stable 4 mm focal asymmetry in the left breast upper aspect. A few benign-appearing round calcifications in left breast are redemonstrated. No suspicious new mass or distortion in the left breast. Overall Assessment: Benign, BI-RAD 2 Management: Screening Mammogram of both breasts in 5 months. Return to routine follow-up. Results were given to the patient verbally at the time of exam. Electronically signed and approved by: Manohar Fuentes M.D.
--- NOTE | 2022-04-13 11:23 | USB ---
Reason for Exam: Follow-up at short interval from prior study. Patient History: Menarche at age 13. First Full-Term at age 18. Left ovary removed at age 52. Right ovary removed at age 52. Hysterectomy at age 52. Postmenopausal. Maternal aunt had breast cancer, age 80. Maternal aunt had breast cancer at or over age 50. Mother had breast cancer, age 72. Mother had breast cancer at or over age 50. Risk Values: Adela 5 year model risk: 7.9%. NCI Lifetime model risk: 25.7%. Prior Study Comparison: 03/31/2019 Right Diagnostic Mammogram, [facility]. 04/12/2020 Bilateral Screening Mammogram, [facility]. 08/14/2021 Bilateral MG 3D screening mammo w/cad, [facility]. Findings: The upper section of the breast of the left breast, the axilla of the left breast and the retroareolar of the left breast were scanned. Targeted ultrasound 2:00 position 6 cm distance from nipple shows elongated anechoic area measuring 4 mm long axis favoring benign thin-walled cyst, this is diminished in size from prior study. Targeted ultrasound left breast shows 4 x 2 x 4 mm round anechoic lesion 12:00 position 4 cm distance from nipple favoring benign thin-walled cyst unchanged from prior. At 11:00 position there is irregular hypoechoic area measuring 5 x 4 x 2 mm with some shadowing and possible some deep vascularity. This was not clearly seen on prior. Overall Assessment: Suspicious, BI-RAD 4 Management: Ultrasound Core Biopsy of the left breast. Targeted biopsy 11:00 lesion not seen on prior ultrasound. Results were given to the patient verbally at the time of exam. Electronically signed and approved by: Manohar Fuentes M.D.
== END | disposition home or self-care (01) ==
LOC: RADMAMWWP 10:12
PROVIDERS: ATTEND Family Medicine
DX: R92.8 Other abnormal and inconclusive findings on diagnostic imaging of breast (principal); Z78.0 Asymptomatic menopausal state; Z80.3 Family history of malignant neoplasm of breast
CPT/HCPCS: 77065; 76642; G0279; 77061

== ENCOUNTER → 2022-06-26 | Outpatient (CLI) | payer MEDICARE ==
[2022-06-26 10:44] VITALS: BP 114/78; PULSE 68; RESP 18; TEMP 98.2
--- NOTE | 2022-06-26 11:26 | P.GSHP ---
History of Present Illness H&P Date: 06/26/22 Chief Complaint: abnormal left breast ultrasound Madhuri is a 67 year old whtie female seen in consultation for Dr. Wood regarding a left breast abnormal ultrasound finding. She had a bilateral mammogram on 08-14-21, this led to an ultrasound of the left breast on 08-22-21 which was read as BIRAD 3 and repeat left breast mammogram and ultrasound at 6 months was recommended. She had a repeat left breast mammogram on 04-13-22 and a left breast ultrasound. Nothing of concern was seen on the mammogram, but the ultrasound showed a 5 by 4 mm hypoechoic for which biopsy was recommended at 11;00. This was done on 04-28-22 and was fibroadenomatoid hyperplasia with nuris rcalcification ad background fibrocystic changes. This was reviewed with radiology and felt to be discordant and open resection was recommended. She one year ago was having some pain around the nipple in the left breast. She is not complaining of any lumps masses or nodules of concern in either breast. She is not complaining of any nipple discharge or skin changes. She has not had any recent trauma or infection in the breast. She handled the biopsy without difficulty. The recent breast biopsy is the only procedure she is ever had on her breast. Adela Risk 7.9% lifetime risk: 25.7% Caffeine: 1/2 caffiene 4 cups/day nicotine: none chocolate: daily BCP: 12 years Family History: mother: bilateral breast cancer in her 60's maternal aunt: breast cancer father: prostate cancer paternal grandmother: bone cancer paternal grandfather: prostate cancer Hormonal History: menarche: 13 , breast fed: no, age at first : 18 menopause: hysterectomy in her 40's not sure all of ovaries removed; bleeding no cancer hormones: not used Surgical History: ROLO, ? 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 Social HIstory: nicotine: stopped 30 years, used to smoke 1/2 PPD for 15 years alcohol: occasional drugs: none - Constitutional Constitutional: Denies chills, Denies fever - EENT Eyes: denies blurred vision, denies pain Ears: deny: decreased hearing, tinnitus Ears, nose, mouth and throat: Reports headache, Denies sore throat - Breasts Breasts: bilateral: as per HPI - Cardiovascular Cardiovascular: Denies chest pain, Denies shortness of breath - Respiratory Respiratory: Denies cough, Denies 7 - Gastrointestinal Gastrointestinal: Denies abdominal pain, Denies diarrhea, Denies nausea, Denies vomiting - Genitourinary (Female) Genitourinary: Denies dysuria, Denies hematuria - Menstruation Menstruation: Reports post hysterectomy - Musculoskeletal Musculoskeletal: Reports as per HPI - Integumentary Integumentary: Denies pruritus, Denies rash - Neurological Comment: none - Psychiatric Psychiatric: Reports depression - Endocrine Endocrine: Denies fatigue, Denies weight change - Hematologic/Lymphatic Comment: takes baby aspirin - Allergic/Immunologic Allergic/Immunologic: Reports seasonal allergies Past Medical History Past Medical History: GERD/Reflux, Hyperlipidemia, Osteoarthritis (OA) Additional Past Medical History / Comment(s): DIVERTICULOSIS, ENVIRONMENTAL ALLERGIES. History of Any Multi-Drug Resistant Organisms: None Reported Past Surgical History: Cholecystectomy, Heart Catheterization, Hysterectomy, Tonsillectomy Additional Past Surgical History / Comment(s): laparoscopy, Heart Cath ([facility] 2017) colonoscopy, arterial bypass rt side at [facility], Right hand and Right foot surgery Past Anesthesia/Blood Transfusion Reactions: Postoperative Nausea & Vomiting (PONV) Past Psychological History: Anxiety Additional Psychological History / Comment(s): Zoloft Smoking Status: Former smoker Past Alcohol Use History: Occasional Additional Past Alcohol Use History / Comment(s): QUIT SMOKING 1994, SMOKED 1/2 PPD- SMOKED 5-10 YEARS. Past Drug Use History: None Reported - Past Family History Mother Family Medical History: Cancer Additional Family Medical History / Comment(s): BREAST CANCER Father Family Medical History: Cancer Additional Family Medical History / Comment(s): PROSTATE CANCER Medications and Allergies Home Medications Medication Instructions Recorded Confirmed Type Aspirin 81 mg PO DAILY 09/13/13 06/26/22 History Atorvastatin [Lipitor] 20 mg PO HS 09/13/13 06/26/22 History Cholecalciferol [Vitamin D3] 2,000 unit PO DAILY 09/13/13 06/26/22 History Sertraline [Zoloft] 75 mg PO DAILY 09/13/13 06/26/22 History Vits A,C,E/Lutein/Minerals 1 each PO DAILY 05/21/16 06/26/22 History [Ocuvite with Lutein Tablet] Fluticasone Nasal [place] [Flonase 1 spray EA NOSTRIL DAILY PRN 07/06/17 06/26/22 History Nasal [place]] flaxseed oiL [[place]-3 Flaxseed Oil] 1,000 mg PO DAILY 07/06/17 06/26/22 History Meloxicam [Mobic] 15 mg PO DAILY PRN 04/13/22 06/26/22 History methocarbamoL [Robaxin-750] 750 mg PO TID 04/13/22 06/26/22 History Allergies Allergy/AdvReac Type Severity Reaction Status Date / Time No Known Allergies Allergy Verified 06/26/22 10:40 Surgical - Exam Vital Signs Temp Pulse Resp BP Pulse Ox 98.2 F 68 18 114/78 97 06/26/22 10:40 06/26/22 10:40 06/26/22 10:40 06/26/22 10:40 06/26/22 10:40 BMI: 34.8 - General no distress - Eyes normal ocular movement - Neck trachea midline - Respiratory normal respiratory effort, clear to auscultation - Cardiovascular Rhythm: regular Heart Sounds: normal: S1, S2 - Abdomen Abdomen: soft, non tender, no guarding, no rigid, no rebound - Integumentary normal turgor - Neurologic no disoriented, no combative - Musculoskeletal normal gait, normal posture - Psychiatric oriented to time, oriented to person, oriented to place, speech is normal, memory intact Breast Exam: BRA; 36C Inspection: bilateral grade 2/3 ptosis The patient: Right breast: Multiple positional exam fibrocystic changes no dominant masses or nodules of concern Right axilla: No adenopathy of concern Left breast: Puncture site for the core biopsy clean and dry well-healed, no dominant masses or nodules of concern fibrocystic changes, particularly attention to the 11:00 area does not feel any discrete lumps masses or concern Left axilla: No adenopathy of concern Results Mammogram and ultrasound personally reviewed with radiology Assessment and Plan Assessment: Impression: Ultrasound lesion left breast 11:00 core biopsy felt to be discordant [place] [address] Strong family history of breast cancer/Adela risk at 5 years 7.9% 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 They understand and wish to proceed. We have discussed Adela risk being elevated however prior to any recommendation regarding this the patient is going to have a biopsy of the left breast to ascertain what is happening in the left breast. Prior to the surgical procedure I would recommend a right breast mammogram be done as she is almost due for this. CC: Dr. Wood
== END | disposition home or self-care (01) ==
LOC: WWCWWP 10:26
PROVIDERS: ATTEND Surgery
DX: N63.22 Unspecified lump in the left breast, upper inner quadrant (principal); E78.5 Hyperlipidemia, unspecified; F41.9 Anxiety disorder, unspecified; K21.9 Gastro-esophageal reflux disease without esophagitis; M47.812 Spondylosis without myelopathy or radiculopathy, cervical region; K57.90 Diverticulosis of intestine, part unspecified, without perforation or abscess without bleeding; Z80.3 Family history of malignant neoplasm of breast; Z87.891 Personal history of nicotine dependence; Z90.49 Acquired absence of other specified parts of digestive tract; Z90.722 Acquired absence of ovaries, bilateral

== ENCOUNTER → 2022-08-18 | Outpatient (CLI) | payer MEDICARE ==
--- NOTE | 2022-08-18 09:27 | MM ---
Reason for Exam: Follow-up at short interval from prior study. Last screening mammogram was performed 12 month(s) ago. Patient History: Menarche at age 13. First Full-Term at age 18. Left ovary removed at age 52. Right ovary removed at age 52. Hysterectomy at age 52. Postmenopausal. Previous Hyperplasia w/o Atypia at age 67. 04/28/2022, Benign US biopsy breast VAD LT on the left side. Maternal aunt had breast cancer, age 80. Mother had breast cancer, age 72. Risk Values: Adela 5 year model risk: 3.7%. NCI Lifetime model risk: 12.8%. Prior Study Comparison: 08/14/2021 Bilateral MG 3D screening mammo w/cad, [facility]. 04/13/2022 Left MG 3D diag mammo w/cad LT, [facility]. 04/28/2022 Left MG diagnostic mammo LT wo CAD., [facility]. Tissue Density: Right: The breast tissue is heterogeneously dense. This may lower the sensitivity of mammography. Findings: Analyzed By CAD. No new suspicious masses, calcifications or distortions. Overall Assessment: Negative, BI-RAD 1 Management: Screening Mammogram of the right breast in 1 year. Results were given to the patient verbally at the time of exam. Patient should continue monthly self-breast exams. A clinical breast exam by your physician is recommended on an annual basis. This exam should not preclude additional follow-up of suspicious palpable abnormalities. Note on Adela scores and lifetime risk: 1. A Adela score greater than 3% is considered moderate risk. If this is the case, consider specialist referral to assess eligibility for a risk reducing agent. 2. If overall lifetime risk for the development of breast cancer is 20% or higher, the patient may qualify for future screening with alternating mammogram and breast MRI. Electronically signed and approved by: Ck Ayala DO
== END | disposition home or self-care (01) ==
LOC: RADMAMWWP 08:56
PROVIDERS: ATTEND Surgery
DX: R92.8 Other abnormal and inconclusive findings on diagnostic imaging of breast (principal); Z78.0 Asymptomatic menopausal state; Z80.3 Family history of malignant neoplasm of breast
CPT/HCPCS: 77065; G0279; 77061

== ENCOUNTER → 2022-08-27 | Outpatient (CLI) | payer MEDICARE ==
--- NOTE | 2022-08-27 16:58 | P.PN ---
Subjective Progress Note Date: 08/27/22 Principal diagnosis: discordant left breast core biopsy abnormal left breast ultrasound Madhuri is a 67 year old white female seen in consultation for Dr. Wood regarding a left breast abnormal ultrasound finding. She had a bilateral mammogram on 08-14-21, this led to an ultrasound of the left breast on 08-22-21 which was read as BIRAD 3 and repeat left breast mammogram and ultrasound at 6 months was recommended. She had a repeat left breast mammogram on 04-13-22 and a left breast ultrasound. Nothing of concern was seen on the mammogram, but the ultrasound showed a 5 by 4 mm hypoechoic for which biopsy was recommended at 11;00. This was done on 04-28-22 and was fibroadenomatoid hyperplasia with micorcalcification and background fibrocystic changes. This was reviewed with radiology and felt to be discordant and open resection was recommended. She one year ago was having some pain around the nipple in the left breast. She is not complaining of any lumps masses or nodules of concern in either breast. She is not complaining of any nipple discharge or skin changes. She has not had any recent trauma or infection in the breast. She handled the biopsy without difficulty. The recent breast biopsy is the only procedure she is ever had on her breast. She underwent a mammogram of her right breast on . BIRAD 1 Adela Risk 7.9% lifetime risk: 25.7% Caffeine: 1/2 caffiene 4 cups/day nicotine: none chocolate: daily BCP: 12 years Family History: mother: bilateral breast cancer in her 60's maternal aunt: breast cancer father: prostate cancer paternal grandmother: bone cancer paternal grandfather: prostate cancer Hormonal History: menarche: 13 , breast fed: no, age at first : 18 menopause: hysterectomy in her 40's not sure all of ovaries removed; bleeding no cancer hormones: not used Surgical History: ROLO, ? 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 Social HIstory: nicotine: stopped 30 years, used to smoke 1/2 PPD for 15 years alcohol: occasional drugs: none - Constitutional Constitutional: Denies chills, Denies fever - EENT Eyes: denies blurred vision, denies pain Ears: deny: decreased hearing, tinnitus Ears, nose, mouth and throat: Reports headache, Denies sore throat - Breasts Breasts: bilateral: as per HPI - Cardiovascular Cardiovascular: Denies chest pain, Denies shortness of breath - Respiratory Respiratory: Denies cough - Gastrointestinal Gastrointestinal: Denies abdominal pain, Denies diarrhea, Denies nausea, Denies vomiting - Genitourinary (Female) Genitourinary: Denies dysuria, Denies hematuria - Menstruation Menstruation: Reports post hysterectomy - Musculoskeletal Musculoskeletal: Reports as per HPI - Integumentary Integumentary: Denies pruritus, Denies rash - Neurological Comment: none - Psychiatric Psychiatric: Reports depression - Endocrine Endocrine: Denies fatigue, Denies weight change - Hematologic/Lymphatic Comment: takes baby aspirin - Allergic/Immunologic Allergic/Immunologic: Reports seasonal allergies Past Medical History Past Medical History: GERD/Reflux, Hyperlipidemia, Osteoarthritis (OA) Additional Past Medical History / Comment(s): DIVERTICULOSIS, ENVIRONMENTAL ALLERGIES. History of Any Multi-Drug Resistant Organisms: None Reported Past Surgical History: Cholecystectomy, Heart Catheterization, Hysterectomy, Tonsillectomy Additional Past Surgical History / Comment(s): laparoscopy, Heart Cath ([facility] 2017) colonoscopy, arterial bypass rt side at [facility], Right hand and Right foot surgery Past Anesthesia/Blood Transfusion Reactions: Postoperative Nausea & Vomiting (PONV) Past Psychological History: Anxiety Additional Psychological History / Comment(s): Zoloft Smoking Status: Former smoker Past Alcohol Use History: Occasional Additional Past Alcohol Use History / Comment(s): QUIT SMOKING 1994, SMOKED 1/2 PPD- SMOKED 5-10 YEARS. Past Drug Use History: None Reported - Past Family History Mother Family Medical History: Cancer Additional Family Medical History / Comment(s): BREAST CANCER Father Family Medical History: Cancer Additional Family Medical History / Comment(s): PROSTATE CANCER Medications and Allergies Home Medications Medication Instructions Recorded Confirmed Type Aspirin 81 mg PO DAILY 09/13/13 06/26/22 History Atorvastatin [Lipitor] 20 mg PO HS 09/13/13 06/26/22 History Cholecalciferol [Vitamin D3] 2,000 unit PO DAILY 09/13/13 06/26/22 History Sertraline [Zoloft] 75 mg PO DAILY 09/13/13 06/26/22 History Vits A,C,E/Lutein/Minerals 1 each PO DAILY 05/21/16 06/26/22 History [Ocuvite with Lutein Tablet] Fluticasone Nasal [place] [Flonase 1 spray EA NOSTRIL DAILY PRN 07/06/17 06/26/22 History Nasal [place]] flaxseed oiL [[place]-3 Flaxseed Oil] 1,000 mg PO DAILY 07/06/17 06/26/22 History Meloxicam [Mobic] 15 mg PO DAILY PRN 04/13/22 06/26/22 History methocarbamoL [Robaxin-750] 750 mg PO TID 04/13/22 06/26/22 History Allergies Allergy/AdvReac Type Severity Reaction Status Date / Time No Known Allergies Allergy Verified 06/26/22 10:40 Objective - Vital Signs Vital signs: Intake & Output 08/26/22 08/27/22 08/27/22 18:59 06:59 18:59 Weight 81.647 kg - Constitutional General appearance: Present: cooperative - EENT Eyes: Present: EOMI ENT: Present: hearing grossly normal - Neck Neck: Present: normal ROM - Respiratory Respiratory: bilateral: CTA - Cardiovascular Heart sounds: normal: S1, S2 - Gastrointestinal General gastrointestinal: Present: soft - Integumentary Integumentary: Present: normal turgor - Musculoskeletal Musculoskeletal: Present: gait normal - Psychiatric Psychiatric: Present: A&O x's 3, appropriate affect, intact judgment & insight - Additional findings Additional findings: Breast Exam: BRA; 36C Inspection: bilateral grade 2/3 ptosis The patient: Right breast: Multi positional exam fibrocystic changes no dominant masses or nodules of concern Right axilla: No adenopathy of concern Left breast: Puncture site for the core biopsy clean and dry well-healed, no dominant masses or nodules of concern fibrocystic changes, particularly attention to the 11:00 area does not feel any discrete lumps masses or concern Left axilla: No adenopathy of concern Assessment and Plan Assessment: Impression: Ultrasound lesion left breast 11:00 core biopsy felt to be discordant [place] [id number]; right mammogram on [id number] BIRADS 1, left breast mammogram 04-28-22 led to the ultrasound and core biopsy discordant Strong family history of breast cancer/Adela risk at 5 years 7.9% 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 They understand and wish to proceed. We have discussed Adela risk being elevated however prior to any recommendation regarding this the patient is going to have a biopsy of the left breast to ascertain what is happening in the left breast. Prior to the surgical procedure I would recommend a right breast mammogram be done as she is almost due for this. CC: Dr. Wood Additional CC's: Miguelito Wood
== END ==
LOC: WWCWWP 15:46
PROVIDERS: ATTEND Surgery
DX: Z80.3 Family history of malignant neoplasm of breast (principal); E78.5 Hyperlipidemia, unspecified; K21.9 Gastro-esophageal reflux disease without esophagitis; M19.90 Unspecified osteoarthritis, unspecified site; K57.90 Diverticulosis of intestine, part unspecified, without perforation or abscess without bleeding; Z80.8 Family history of malignant neoplasm of other organs or systems; Z87.891 Personal history of nicotine dependence

== ENCOUNTER → 2022-09-17 | Outpatient (CLI) | payer MEDICARE ==
[2022-09-17 14:57] VITALS: BP 115/81; PULSE 71; RESP 17; TEMP 98.3
--- NOTE | 2022-09-17 15:03 | P.PN ---
Subjective Progress Note Date: 09/17/22 Principal diagnosis: discordant left breast core biopsy discordant left breast core biopsy abnormal left breast ultrasound Madhuri is a 67 year old white female seen in consultation for Dr. Wood regarding a left breast abnormal ultrasound finding. She had a bilateral m ammogram on 08-14-21, this led to an ultrasound of the left breast on 08-22-21 which was read as BIRAD 3 and repeat left breast mammogram and ultrasound at 6 months was recommended. She had a repeat left breast mammogram on 04-13-22 and a left breast ultrasound. Nothing of concern was seen on the mammogram, but the ultrasound showed a 5 by 4 mm hypoechoic for which biopsy was recommended at 11;00. This was done on 04-28-22 and was fibroadenomatoid hyperplasia with micorcalcification and background fibrocystic changes. This was reviewed with radiology and felt to be discordant and open resection was recommended. She one year ago was having some pain around the nipple in the left breast. She is not complaining of any lumps masses or nodules of concern in either breast. She is not complaining of any nipple discharge or skin changes. She has not had any recent trauma or infection in the breast. She handled the biopsy without difficulty. The recent breast biopsy is the only procedure she is ever had on her breast. She underwent a mammogram of her right breast on . BIRAD 1 She was scheduled initially for surgery on the left breast on 09-08-22 was diagnosed with COVID. She has since recovered. Adela Risk 7.9% lifetime risk: 25.7% Caffeine: 1/2 caffiene 4 cups/day nicotine: none chocolate: daily BCP: 12 years Family History: mother: bilateral breast cancer in her 60's maternal aunt: breast cancer father: prostate cancer paternal grandmother: bone cancer paternal grandfather: prostate cancer Hormonal History: menarche: 13 , breast fed: no, age at first : 18 menopause: hysterectomy in her 40's not sure all of ovaries removed; bleeding no cancer hormones: not used Surgical History: ROLO, ? 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 Social HIstory: nicotine: stopped 30 years, used to smoke 1/2 PPD for 15 years alcohol: occasional drugs: none - Constitutional Constitutional: Denies chills, Denies fever - EENT Eyes: denies blurred vision, denies pain Ears: deny: decreased hearing, tinnitus Ears, nose, mouth and throat: Reports headache, Denies sore throat - Breasts Breasts: bilateral: as per HPI - Cardiovascular Cardiovascular: Denies chest pain, Denies shortness of breath - Respiratory Respiratory: Denies cough - Gastrointestinal Gastrointestinal: Denies abdominal pain, Denies diarrhea, Denies nausea, Denies vomiting - Genitourinary (Female) Genitourinary: Denies dysuria, Denies hematuria - Menstruation Menstruation: Reports post hysterectomy - Musculoskeletal Musculoskeletal: Reports as per HPI - Integumentary Integumentary: Denies pruritus, Denies rash - Neurological Comment: none - Psychiatric Psychiatric: Reports depression - Endocrine Endocrine: Denies fatigue, Denies weight change - Hematologic/Lymphatic Comment: takes baby aspirin - Allergic/Immunologic Allergic/Immunologic: Reports seasonal allergies Past Medical History Past Medical History: GERD/Reflux, Hyperlipidemia, Osteoarthritis (OA) Additional Past Medical History / Comment(s): DIVERTICULOSIS, ENVIRONMENTAL AL LERGIES. History of Any Multi-Drug Resistant Organisms: None Reported Past Surgical History: Cholecystectomy, Heart Catheterization, Hysterectomy, Ton sillectomy Additional Past Surgical History / Comment(s): laparoscopy, Heart Cath ([facility] 2017) colonoscopy, arterial bypass rt side at [facility], Right hand and Right foot surgery Past Anesthesia/Blood Transfusion Reactions: Postoperative Nausea & Vomiting (PONV) Past Psychological History: Anxiety Additional Psychological History / Comment(s): Zoloft Smoking Status: Former smoker Past Alcohol Use History: Occasional Additional Past Alcohol Use History / Comment(s): QUIT SMOKING 1994, SMOKED 1/2 PPD- SMOKED 5-10 YEARS. Past Drug Use History: None Reported - Past Family History Mother Family Medical History: Cancer Additional Family Medical History / Comment(s): BREAST CANCER Father Family Medical History: Cancer Additional Family Medical History / Comment(s): PROSTATE CANCER Medications and Allergies Home Medications Medication Instructions Recorded Confirmed Type Aspirin 81 mg PO DAILY 09/13/13 06/26/22 History Atorvastatin [Lipitor] 20 mg PO HS 09/13/13 06/26/22 History Cholecalciferol [Vitamin D3] 2,000 unit PO DAILY 09/13/13 06/26/22 History Sertraline [Zoloft] 75 mg PO DAILY 09/13/13 06/26/22 History Vits A,C,E/Lutein/Minerals 1 each PO DAILY 05/21/16 06/26/22 History [Ocuvite with Lutein Tablet] Fluticasone Nasal [place] [Flonase 1 spray EA NOSTRIL DAILY PRN 07/06/17 06/26/22 History Nasal [place]] flaxseed oiL [[place]-3 Flaxseed Oil] 1,000 mg PO DAILY 07/06/17 06/26/22 History Meloxicam [Mobic] 15 mg PO DAILY PRN 04/13/22 06/26/22 History methocarbamoL [Robaxin-750] 750 mg PO TID 04/13/22 06/26/22 History Allergies Allergy/AdvReac Type Severity Reaction Status Date / Time No Known Allergies Allergy Verified 06/26/22 10:40 Objective - Vital Signs Vital signs: Intake & Output 09/16/22 09/17/22 09/17/22 18:59 06:59 18:59 Weight 81.647 kg - Constitutional General appearance: Present: cooperative - EENT Eyes: Present: EOMI ENT: Present: hearing grossly normal - Neck Neck: Present: normal ROM - Respiratory Respiratory: bilateral: CTA - Cardiovascular Rhythm: regular Heart sounds: normal: S1, S2 - Gastrointestinal General gastrointestinal: Present: soft - Integumentary Integumentary: Present: normal turgor - Musculoskeletal Musculoskeletal: Present: gait normal - Psychiatric Psychiatric: Present: A&O x's 3, appropriate affect, intact judgment & insight - Additional findings Additional findings: Breast Exam: BRA; 36C Inspection: bilateral grade 2/3 ptosis The patient: Right breast: Multi positional exam fibrocystic changes no dominant masses or nodules of concern Right axilla: No adenopathy of concern Left breast: Puncture site for the core biopsy clean and dry well-healed, no dom inant masses or nodules of concern fibrocystic changes, particularly attention to the 11:00 area does not feel any discrete lumps masses or concern Left axilla: No adenopathy of concern Assessment and Plan Assessment: Impression: Ultrasound lesion left breast 11:00 core biopsy felt to be discordant [place] [id number]; [place] [id number] BIRADS 1, left breast mammogram 04-28-22 led to the ultrasound and core biopsy discordant Strong family history of breast cancer/Adela risk at 5 years 7.9% 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 They understand and wish to proceed. We have discussed Adela risk being elevated however prior to any recommendation regarding this the patient is going to have a biopsy of the left breast to ascertain what is happening in the left breast. Patient was scheduled for surgery on , however she was diagnosed with covert and the surgery had to be rescheduled. She is feeling well at this time. CC: Dr. Wood Additional CC's: Miguelito Wood
== END ==
LOC: WWCWWP 14:14
PROVIDERS: ATTEND Surgery
DX: Z85.3 Personal history of malignant neoplasm of breast (principal); K21.9 Gastro-esophageal reflux disease without esophagitis; E78.5 Hyperlipidemia, unspecified; M19.90 Unspecified osteoarthritis, unspecified site; K57.90 Diverticulosis of intestine, part unspecified, without perforation or abscess without bleeding; Z87.891 Personal history of nicotine dependence; Z80.3 Family history of malignant neoplasm of breast

== ENCOUNTER 2022-10-01 13:04 | Day surgery (SDC) | payer MEDICARE ==
[2022-09-25 13:55] VITALS: BMI 32.5
[~2022-10-01 13:04] MED LIST changes: +DEXAMETHASONE SOD PHOSPHATE 4 MG/ML 1 ML VIAL IV ONE; +HEPARIN SODIUM,PORCINE/PF 5,000 UNIT/0.5 ML SYRINGE SQ PRN; -LIDOCAINE 1% 20 ML VIAL (10MG/ML) FOR IV START INTRADERMA PRN; +ONDANSETRON 4 MG/2 ML VIAL IVP ONE; +Pre Op ABX Message 1 EACH MISC MISCELLANE ONE
[2022-10-01] MEDS ORDERED: LIDOCAINE 2% INJ 20 MG/ML (2 ML VIAL) ONE (16:11)
[2022-10-01] MEDS ORDERED: fentaNYL (PF) 50 MCG/ML 2 ML AMP ONE (16:11)
[2022-10-01] MEDS ORDERED: MIDAZOLAM 2 MG/2 ML VIAL ONE (16:11)
[2022-10-01] MEDS ORDERED: PROPOFOL 10 MG/ML 20 ML VIAL IV ONE (16:11)
--- NOTE | 2022-10-01 17:10 | P.OP ---
Date of Procedure: 10/01/22 Preoperative Diagnosis: Discordant core biopsy left breast recommendation needle local excisional biopsy Postoperative Diagnosis: Same Procedure(s) Performed: Needle localization excisional biopsy area left breast with onco-plastic tissue transfer 17 cm Anesthesia: JOSÉ Surgeon: Laurie Hart Estimated Blood Loss (ml): 5 IV fluids (ml): 300 Pathology: other (Breast tissue) Condition: stable Disposition: same day Indications for Procedure: Discordant core biopsy left breast Operative Findings: Dense breast tissue Description of Procedure: The patient was seen initially in the radiology department where needle localization of the area of concern was performed. She was then brought to the operative suite. Following induction of anesthesia the left breast was prepped and draped in a sterile fashion. An incision was made and carried circumferentially around the shaft of the needle. The specimen was removed. The cavity was 4 x 2 cm. The specimen was painted for orientation. Radiograph revealed that the area of concern had been removed. The wound was irrigated. Titanium clips were placed. An inferior pedicle 4 by 2 cm was developed. A superior pedicle 4 by 1 cm was developed. The onc0-plastic tissue transfer was 17 cm. The superior and inferior pedicles were brought together using 3-0 Vicryl suture. Following this the subcutaneous tissue was closed using 3-0 Vicryl suture. The skin was closed using 4-0 Monocryl. Prior to closure of the cavity Surgicel in powder form was placed.
--- NOTE | 2022-10-01 17:11 | P.DS ---
Providers Attending physician: Laurie Hart Primary care physician: Miguelito Wood Plan - Discharge Summary Discharge Rx Participant: No New Discharge Prescriptions: No Action Sertraline [Zoloft] 75 mg PO DAILY Cholecalciferol [Vitamin D3] 2,000 unit PO DAILY Atorvastatin [Lipitor] 20 mg PO HS Aspirin 81 mg PO DAILY Vits A,C,E/Lutein/Minerals [Ocuvite with Lutein Tablet] 1 each PO DAILY Fluticasone Nasal [place] [Flonase Nasal [place]] 1 spray EA NOSTRIL DAILY PRN PRN Reason: Allergy Symptoms flaxseed oiL [[place]-3 Flaxseed Oil] 1,000 mg PO DAILY Meloxicam [Mobic] 15 mg PO DAILY PRN PRN Reason: Pain methocarbamoL [Robaxin-750] 750 mg PO TID Discharge Medication List Aspirin 81 mg PO DAILY 09/13/13 [History] Atorvastatin [Lipitor] 20 mg PO HS 09/13/13 [History] Cholecalciferol [Vitamin D3] 2,000 unit PO DAILY 09/13/13 [History] Sertraline [Zoloft] 75 mg PO DAILY 09/13/13 [History] Vits A,C,E/Lutein/Minerals [Ocuvite with Lutein Tablet] 1 each PO DAILY 05/21/16 [History] Fluticasone Nasal [place] [Flonase Nasal [place]] 1 spray EA NOSTRIL DAILY PRN 07/06/17 [History] flaxseed oiL [[place]-3 Flaxseed Oil] 1,000 mg PO DAILY 07/06/17 [History] Meloxicam [Mobic] 15 mg PO DAILY PRN 04/13/22 [History] methocarbamoL [Robaxin-750] 750 mg PO TID 04/13/22 [History] Follow up Appointment(s)/Referral(s): Laurie Hart MD [STAFF PHYSICIAN] - 10/09/22 1:00 pm Activity/Diet/Wound Care/Special Instructions: Do not drive for 24 hours after discharge or if taking narcotic pain medicine May shower after 48 hours Wear bra at all times Discharge Disposition: HOME SELF-CARE
[2022-10-01 17:20] VITALS: TEMP 97
[2022-10-01] MEDS: HYDROmorphone 0.5 MG/0.5 ML SYRINGE IVP PRN ×2 (17:41→18:00)
[2022-10-01 19:02] VITALS: RESP 18
[2022-10-01 19:27] VITALS: BP 125/79; PULSE 51
== END 2022-10-01 19:25 | disposition home or self-care (01) ==
LOC: OR 13:04
PROVIDERS: ATTEND Surgery
DX: N60.92 Unspecified benign mammary dysplasia of left breast (principal); N60.12 Diffuse cystic mastopathy of left breast; N60.22 Fibroadenosis of left breast
CPT/HCPCS: 19125; 14301; 88342; 88307; 88341; 76098; 19281; C1819; J2250; J1100; J2405; J3010; J2704; J1170; J1644; J2001

== ENCOUNTER → 2022-10-06 | Outpatient (CLI) | payer MEDICARE ==
[2022-10-06 08:49] VITALS: BP 129/96; PULSE 98; RESP 18; TEMP 98.4
--- NOTE | 2022-10-06 09:46 | P.PN ---
Progress Note - Text Progress Note Date: 10/06/22 [place] [id number] underwent a left breast needle localization excisional biopsy for discordant core biopsy lesion. The patient approximately 2 days ago stated she noted some erythema near the site of the incision extending into the lateral breast and a rash. She has not had any fever or chills. She is not complaining of pain. Examination: The patient has a rash in the lateral breast which is bruised and punctate extending towards the area of the incision. There is no evidence of infection. Impression: ALLERGIC reaction in the left breast Plan: Benadryl Hydrocortisone cream Appointment with dermatology Patient will follow up later this week
== END ==
LOC: WWCWWP 08:13
PROVIDERS: ATTEND Surgery
DX: N64.59 Other signs and symptoms in breast (principal); Z87.891 Personal history of nicotine dependence

== ENCOUNTER → 2022-10-08 | Outpatient (CLI) | payer MEDICARE ==
[2022-10-08 14:03] VITALS: BP 122/81; PULSE 63; RESP 18; TEMP 98.2
--- NOTE | 2022-10-08 14:10 | P.PN ---
Progress Note - Text Progress Note Date: 10/08/22 [place] [id number] underwent a left breast needle localization excisional biopsy for discordant core biopsy lesion. The patient approximately 4 days ago stated she noted some erythema near the site of the incision extending into the lateral breast and a rash. She did not have any fever or chills. She was not complaining of pain. Pathology was benign with benign papillomas present. She was seen by a plant tender and given a prescription for clobatesol 0.05% BID. Examination: The patient has a rash in the lateral breast which is raised and punctate extending towards the area of the incision. There is no evidence of infection. Has improved slightly from her last appointment. It is not spreading. Lungs: Clear Heart: Regular rate and rhythm Impression: ALLERGIC reaction in the left breast Plan: Treatment as per dermatology Patient will follow 2 weeks CC: Dr. Wood
== END ==
LOC: WWCWWP 13:03
PROVIDERS: ATTEND Surgery
DX: Z09 Encounter for follow-up examination after completed treatment for conditions other than malignant neoplasm (principal); T78.40XA Allergy, unspecified, initial encounter; Z87.891 Personal history of nicotine dependence

== ENCOUNTER → 2022-10-22 | Outpatient (CLI) | payer MEDICARE ==
--- NOTE | 2022-10-22 09:23 | P.PN ---
Progress Note - Text Progress Note Date: 10/22/22 [place] [id number] underwent a left breast needle localization excisional biopsy for discordant core biopsy lesion. The patient post-op noted some erythema near the site of the incision extending into the lateral breast and a rash. She did not have any fever or chills. She was not complaining of pain. Pathology was benign with benign papillomas present. She was seen by a rural health consultant and given a prescription for clobatesol 0.05% BID, she stopped this last week she had improvement of the rash. Examination: Incision left breast clean and dry, resolution of the rash Impression: ALLERGIC reaction in the left breast results, pathology benign papillomas Plan: Appointment with medical oncology to consider chemoprophylaxis Repeat left breast mammogram in 6 months with a physician exam here at that time CC: Dr. Wood Additional CC's: Miguelito Wood
[2022-10-22 09:46] VITALS: BP 119/81; PULSE 80; RESP 17; TEMP 97.8
== END ==
LOC: WWCWWP 09:01
PROVIDERS: ATTEND Surgery
DX: D24.2 Benign neoplasm of left breast (principal); T78.40XA Allergy, unspecified, initial encounter; Z87.891 Personal history of nicotine dependence

== ENCOUNTER → 2023-04-06 | Outpatient (CLI) | payer MEDICARE ==
--- NOTE | 2023-04-06 09:28 | MM ---
Reason for Exam: Follow-up at short interval from prior study. Last mammogram was performed 1 year(s) and 8 month(s) ago. Patient History: Menarche at age 13. First Full-Term at age 18. Left ovary removed at age 52. Right ovary removed at age 52. Hysterectomy at age 52. Postmenopausal. Previous Hyperplasia w/o Atypia at age 67. 10/01/2022, Lumpectomy on the Left side. 10/01/2022, Benign MG pre op needle loc LT on the left side. 04/28/2022, Benign US biopsy breast VAD LT on the left side. Maternal aunt had breast cancer, age 80. Mother had breast cancer, age 72. Risk Values: Adela 5 year model risk: 4.7%. NCI Lifetime model risk: 15.4%. Prior Study Comparison: 01/27/2018 Bilateral Screening Mammogram, [facility]. 03/07/2019 Bilateral Screening Mammogram, [facility]. 03/31/2019 Right Diagnostic Mammogram, [facility]. 04/12/2020 Bilateral Screening Mammogram, [facility]. 08/14/2021 Bilateral MG 3D screening mammo w/cad, [facility]. 04/13/2022 Left MG 3D diag mammo w/cad LT, [facility]. 04/28/2022 Left MG diagnostic mammo LT wo CAD., [facility]. 08/18/2022 Right MG 3D diag mammo w/cad RT, [facility]. Tissue Density: Left: There are scattered fibroglandular densities. Findings: Analyzed By CAD. Surgical clips in the left breast. There is no suspicious group of microcalcifications or new suspicious mass. No new suspicious masses, calcifications or distortions. Overall Assessment: Benign, BI-RAD 2 Management: Screening Mammogram of both breasts in 1 year. Results were given to the patient verbally at the time of exam. Patient should continue monthly self-breast exams. A clinical breast exam by your physician is recommended on an annual basis. This exam should not preclude additional follow-up of suspicious palpable abnormalities. Note on Adela scores and lifetime risk: 1. A Adela score greater than 3% is considered moderate risk. If this is the case, consider specialist referral to assess eligibility for a risk reducing agent. 2. If overall lifetime risk for the development of breast cancer is 20% or higher, the patient may qualify for future screening with alternating mammogram and breast MRI. Electronically signed and approved by: Ck Ayala DO
== END | disposition home or self-care (01) ==
LOC: RADMAMWWP 08:23
PROVIDERS: ATTEND Surgery
DX: R92.322 Mammographic fibroglandular density, left breast (principal); Z85.3 Personal history of malignant neoplasm of breast; Z78.0 Asymptomatic menopausal state; Z80.3 Family history of malignant neoplasm of breast
CPT/HCPCS: 77065; G0279; 77061

== ENCOUNTER → 2023-04-14 | Outpatient (CLI) | payer MEDICARE ==
[2023-04-14 14:07] VITALS: BP 143/83; PULSE 67; RESP 17; TEMP 97.8
--- NOTE | 2023-04-14 14:16 | P.PN ---
Subjective Progress Note Date: 04/14/23 Principal diagnosis: fibrocystic breast changes Madhuri is a 68 year old white female seen in consultation for Dr. Wood regarding a left breast abnormal ultrasound finding. She had a bilateral mammogram on 08-14-21, this led to an ultrasound of the left breast on 08-22-21 which was read as BIRAD 3 and repeat left breast mammogram and ultrasound at 6 months was recommended. She had a repeat left breast mammogram on 04-13-22 and a left breast ultrasound. Nothing of concern was seen on the mammogram, but the ultrasound showed a 5 by 4 mm hypoechoic for which biopsy was recommended at 11;. This was done on 04-28-22 and was fibroadenomatoid hyperplasia with nuris rcalcification and background fibrocystic changes. This was reviewed with radiology and felt to be discordant and open resection was recommended. She one year ago was having some pain around the nipple in the left breast. She is not complaining of any lumps masses or nodules of concern in either breast. She is not complaining of any nipple discharge or skin changes. She has not had any recent trauma or infection in the breast. She handled the biopsy without difficulty. The recent breast biopsy is the only procedure she is ever had on her breast. She underwent a mammogram of her right breast on . BIRAD 1 She was scheduled initially for surgery on the left breast on 09-08-22 was diagnosed with COVID. This was reschduled for a discordant core biopsy on 10-01-22. Post procedure she developed a rash at the biopsy site and was followed by dermatology. left breast mammogram 04-06-23 BIRAD 2 Not complaining of any new lumps masses or nodules of concern in either breast. She does have persistent mild pain in the left breast near the nipple. note medical oncology reviewed 12-30-22; she declined chemoprevention Adela Risk 4,7% lifetime risk: 15.4% Caffeine: 1/2 caffiene 4 cups/day nicotine: none chocolate: daily BCP: 12 years Family History: mother: bilateral breast cancer in her 60's maternal aunt: breast cancer father: prostate cancer paternal grandmother: bone cancer paternal grandfather: prostate cancer Hormonal History: menarche: 13 , breast fed: no, age at first : 18 menopause: hysterectomy in her 40's not sure all of ovaries removed; bleeding no cancer hormones: not used Surgical History: ROLO, ? 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 low back pain/ scheduled for MRI 04-15-23 Social HIstory: nicotine: stopped 30 years, used to smoke 1/2 PPD for 15 years alcohol: occasional drugs: none - Constitutional Constitutional: Denies chills, Denies fever - EENT Eyes: denies blurred vision, denies pain Ears: deny: decreased hearing, tinnitus Ears, nose, mouth and throat: Reports headache, Denies sore throat - Breasts Breasts: bilateral: as per HPI - Cardiovascular Cardiovascular: Denies chest pain, Denies shortness of breath - Respiratory Respiratory: Denies cough - Gastrointestinal Gastrointestinal: Denies abdominal pain, Denies diarrhea, Denies nausea, Denies vomiting - Genitourinary (Female) Genitourinary: Denies dysuria, Denies hematuria - Menstruation Menstruation: Reports post hysterectomy - Musculoskeletal Musculoskeletal: Reports as per HPI - Integumentary Integumentary: Denies pruritus, Denies rash - Neurological Comment: none - Psychiatric Psychiatric: Reports depression - Endocrine Endocrine: Denies fatigue, Denies weight change - Hematologic/Lymphatic Comment: takes baby aspirin - Allergic/Immunologic Allergic/Immunologic: Reports seasonal allergies Past Medical History Past Medical History: GERD/Reflux, Hyperlipidemia, Osteoarthritis (OA) Additional Past Medical History / Comment(s): DIVERTICULOSIS, ENVIRONMENTAL ALLERGIES. History of Any Multi-Drug Resistant Organisms: None Reported Past Surgical History: Cholecystectomy, Heart Catheterization, Hysterectomy, Tonsillectomy Additional Past Surgical History / Comment(s): laparoscopy, Heart Cath ([facility] 2017) colonoscopy, arterial bypass rt side at [facility], Right hand and Right foot surgery Past Anesthesia/Blood Transfusion Reactions: Postoperative Nausea & Vomiting (PONV) Past Psychological History: Anxiety Additional Psychological History / Comment(s): Zoloft Smoking Status: Former smoker Past Alcohol Use History: Occasional Additional Past Alcohol Use History / Comment(s): QUIT SMOKING 1994, SMOKED 1/2 PPD- SMOKED 5-10 YEARS. Past Drug Use History: None Reported - Past Family History Mother Family Medical History: Cancer Additional Family Medical History / Comment(s): BREAST CANCER Father Family Medical History: Cancer Additional Family Medical History / Comment(s): PROSTATE CANCER Medications and Allergies Home Medications Medication Instructions Recorded Confirmed Type Aspirin 81 mg PO DAILY 09/13/13 06/26/22 History Atorvastatin [Lipitor] 20 mg PO HS 09/13/13 06/26/22 History Cholecalciferol [Vitamin D3] 2,000 unit PO DAILY 09/13/13 06/26/22 History Sertraline [Zoloft] 75 mg PO DAILY 09/13/13 06/26/22 History Vits A,C,E/Lutein/Minerals 1 each PO DAILY 05/21/16 06/26/22 History [Ocuvite with Lutein Tablet] Fluticasone Nasal [place] [Flonase 1 spray EA NOSTRIL DAILY PRN 07/06/17 06/26/22 History Nasal [place]] flaxseed oiL [[place]-3 Flaxseed Oil] 1,000 mg PO DAILY 07/06/17 06/26/22 History Meloxicam [Mobic] 15 mg PO DAILY PRN 04/13/22 06/26/22 History methocarbamoL [Robaxin-750] 750 mg PO TID 04/13/22 06/26/22 History Allergies Allergy/AdvReac Type Severity Reaction Status Date / Time No Known Allergies Allergy Verified 06/26/22 10:40 Objective - Vital Signs Vital signs: Vital Signs Temp 97.8 F 04/14/23 13:59 Pulse 67 04/14/23 13:59 Resp 17 04/14/23 13:59 BP 143/83 04/14/23 13:59 Pulse Ox 97 04/14/23 13:59 FiO2 Intake & Output 04/13/23 04/14/23 04/14/23 18:59 06:59 18:59 Weight 81.647 kg - Constitutional General appearance: Present: cooperative - EENT Eyes: Present: EOMI ENT: Present: hearing grossly normal - Neck Neck: Present: normal ROM - Respiratory Respiratory: bilateral: CTA - Cardiovascular Heart sounds: normal: S1, S2 - Integumentary Integumentary: Present: normal turgor - Musculoskeletal Musculoskeletal: Present: gait normal - Psychiatric Psychiatric: Present: A&O x's 3, appropriate affect, intact judgment & insight - Additional findings Additional findings: Breast Exam: BRA; 36C Inspection: bilateral grade 2/3 ptosis The patient: Right breast: Multi positional exam fibrocystic changes no dominant masses or nodules of concern Right axilla: No adenopathy of concern Left breast: no dominant masses or nodules of concern fibrocystic changes, well healed scar Left axilla: No adenopathy of concern Assessment and Plan Assessment: Plan Fibrocystic breast changes Plan: Bilateral mammogram September 2023 with examination at that time Patient is continuing to follow with medical oncology regarding possible chemoprophylaxis but at this time she would prefer to avoid this if possible CC: DR. Wood
== END ==
LOC: WWCWWP 13:51
PROVIDERS: ATTEND Surgery
DX: N60.11 Diffuse cystic mastopathy of right breast (principal); M19.90 Unspecified osteoarthritis, unspecified site; K21.9 Gastro-esophageal reflux disease without esophagitis; E78.5 Hyperlipidemia, unspecified; F41.9 Anxiety disorder, unspecified; N64.4 Mastodynia; Z80.3 Family history of malignant neoplasm of breast; Z87.891 Personal history of nicotine dependence; Z86.16 Personal history of COVID-19; Z79.82 Long term (current) use of aspirin

== ENCOUNTER → 2023-10-11 | Outpatient (CLI) | payer MEDICARE ==
--- NOTE | 2023-10-12 12:51 | MM ---
Reason for Exam: Screening (asymptomatic). Last mammogram was performed 2 year(s) and 2 month(s) ago. Patient History: Menarche at age 13. First Full-Term at age 18. Left ovary removed at age 52. Right ovary removed at age 52. Hysterectomy at age 52. Postmenopausal. Previous Hyperplasia w/o Atypia at age 67. 10/01/2022, Lumpectomy on the Left side. 10/01/2022, Benign MG pre op needle loc LT on the left side. 04/28/2022, Benign US biopsy breast VAD LT on the left side. Maternal aunt had breast cancer, age 80. Mother had breast cancer, age 72. Risk Values: Adela 5 year model risk: 4.7%. NCI Lifetime model risk: 15.4%. Prior Study Comparison: 04/28/2022 Left MG diagnostic mammo LT wo CAD., [facility]. 08/18/2022 Right MG 3D diag mammo w/cad RT, [facility]. 04/06/2023 Left MG 3D diag mammo w/cad [place], [facility]. Tissue Density: The breasts are heterogeneously dense, which may obscure small masses. Findings: Analyzed By CAD. There is no suspicious group of microcalcifications or new suspicious mass in either breast. Overall Assessment: Benign, BI-RAD 2 Management: Screening Mammogram of both breasts in 1 year. . Patient should continue monthly self-breast exams. A clinical breast exam by your physician is recommended on an annual basis. This exam should not preclude additional follow-up of suspicious palpable abnormalities. Note on Adela scores and lifetime risk: 1. A Adela score greater than 3% is considered moderate risk. If this is the case, consider specialist referral to assess eligibility for a risk reducing agent. 2. If overall lifetime risk for the development of breast cancer is 20% or higher, the patient may qualify for future screening with alternating mammogram and breast MRI. Electronically signed and approved by: Rodolfo Chavez M.D. Radiologis
== END | disposition home or self-care (01) ==
LOC: RADMAMWWP 10:58
PROVIDERS: ATTEND Surgery
DX: Z12.31 Encounter for screening mammogram for malignant neoplasm of breast (principal); R92.333 Mammographic heterogeneous density, bilateral breasts; Z78.0 Asymptomatic menopausal state; Z80.3 Family history of malignant neoplasm of breast
CPT/HCPCS: 77063; 77067

== ENCOUNTER → 2023-10-15 | Outpatient (CLI) | payer MEDICARE ==
[2023-10-15 13:16] VITALS: BP 101/61; PULSE 57; RESP 17; TEMP 98.1
--- NOTE | 2023-10-15 13:46 | P.PN ---
Subjective Progress Note Date: 10/15/23 Principal diagnosis: fibrocystic breast 04/14/23 Principal diagnosis: fibrocystic breast changes Madhuri is a 68 year old white female seen in consultation for Dr. Wood regarding a left breast abnormal ultrasound finding. She had a bilateral mammogram on 08-14-21, this led to an ultrasound of the left breast on 08-22-21 which was read as BIRAD 3 and repeat left breast mammogram and ultrasound at 6 months was recommended. She had a repeat left breast mammogram on 04-13-22 and a left breast ultrasound. Nothing of concern was seen on the mammogram, but the ultrasound showed a 5 by 4 mm hypoechoic lesion for which biopsy was recommended at 11;. This was done on 04-28-22 and was fibroadenomatoid hyperplasia with micorcalcification and background fibrocystic changes. This was reviewed with radiology and felt to be discordant and open resection was recommended. She one year ago was having some pain around the nipple in the left breast. She is not complaining of any lumps masses or nodules of concern in either breast. She is not complaining of any nipple discharge or skin changes. She has not had any recent trauma or infection in the breast. She handled the biopsy without difficulty. The recent breast biopsy is the only procedure she is ever had on her breast. This was done on 10-01-22 and was benign concordant. She underwent a mammogram of her right breast on . BIRAD 1 She was scheduled initially for surgery on the left breast on 09-08-22 was diagnosed with COVID. This was reschduled for a discordant core biopsy on 10-01-22. Post procedure she developed a rash at the biopsy site and was followed by dermatology. left breast mammogram 04-06-23 BIRAD 2 Not complaining of any new lumps masses or nodules of concern in either breast. She does have persistent mild pain in the left breast near the nipple. note medical oncology reviewed 12-30-22; she declined chemoprevention Bilateral mammogram on 10-11-23 BIRAD 2 She is not complaining of any new lumps masses or nodules of concern in either b reast, she is not complaining of any nipple discharge or skin changes. Adela Risk 4,7% lifetime risk: 15.4% She did meet and discuss chemoprophylaxis with Dr. Anthony Dewitt on 04-26-2023. After all of the information she has decided to be followed conservatively and declined chemoprophylaxis. Caffeine: 1/2 caffiene 4 cups/day nicotine: none chocolate: daily BCP: 12 years Family History: mother: bilateral breast cancer in her 60's maternal aunt: breast cancer father: prostate cancer paternal grandmother: bone cancer paternal grandfather: prostate cancer Hormonal History: menarche: 13 , breast fed: no, age at first : 18 menopause: hysterectomy in her 40's not sure all of ovaries removed; bleeding no cancer hormones: not used Surgical History: ROLO, ? 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 low back pain/ scheduled for MRI 04-15-23 Spondylosis and cervical spine and in the lower back Social History: nicotine: stopped 30 years, used to smoke 1/2 PPD for 15 years alcohol: occasional drugs: none - Constitutional Constitutional: Denies chills, Denies fever - EENT Eyes: denies blurred vision, denies pain Ears: deny: decreased hearing, tinnitus Ears, nose, mouth and throat: Reports headache, Denies sore throat - Breasts Breasts: bilateral: as per HPI - Cardiovascular Cardiovascular: Denies chest pain, Denies shortness of breath - Respiratory Respiratory: Denies cough - Gastrointestinal Gastrointestinal: Denies abdominal pain, Denies diarrhea, Denies nausea, Denies vomiting - Genitourinary (Female) Genitourinary: Denies dysuria, Denies hematuria - Menstruation Menstruation: Reports post hysterectomy - Musculoskeletal Musculoskeletal: Reports as per HPI - Integumentary Integumentary: Denies pruritus, Denies rash - Neurological Comment: none - Psychiatric Psychiatric: Reports depression - Endocrine Endocrine: Denies fatigue, Denies weight change - Hematologic/Lymphatic Comment: takes baby aspirin - Allergic/Immunologic Allergic/Immunologic: Reports seasonal allergies Past Medical History Past Medical History: GERD/Reflux, Hyperlipidemia, Osteoarthritis (OA) Additional Past Medical History / Comment(s): DIVERTICULOSIS, ENVIRONMENTAL ALLERGIES. History of Any Multi-Drug Resistant Organisms: None Reported Past Surgical History: Cholecystectomy, Heart Catheterization, Hysterectomy, Tonsillectomy Additional Past Surgical History / Comment(s): laparoscopy, Heart Cath ([facility] 2017) colonoscopy, arterial bypass rt side at [facility], Right hand and Right foot surgery Past Anesthesia/Blood Transfusion Reactions: Postoperative Nausea & Vomiting (PONV) Past Psychological History: Anxiety Additional Psychological History / Comment(s): Zoloft Smoking Status: Former smoker Past Alcohol Use History: Occasional Additional Past Alcohol Use History / Comment(s): QUIT SMOKING 1994, SMOKED 1/2 PPD- SMOKED 5-10 YEARS. Past Drug Use History: None Reported - Past Family History Mother Family Medical History: Cancer Additional Family Medical History / Comment(s): BREAST CANCER Father Family Medical History: Cancer Additional Family Medical History / Comment(s): PROSTATE CANCER Medications and Allergies Home Medications Medication Instructions Recorded Confirmed Type Aspirin 81 mg PO DAILY 09/13/13 06/26/22 History Atorvastatin [Lipitor] 20 mg PO HS 09/13/13 06/26/22 History Cholecalciferol [Vitamin D3] 2,000 unit PO DAILY 09/13/13 06/26/22 History Sertraline [Zoloft] 75 mg PO DAILY 09/13/13 06/26/22 History Vits A,C,E/Lutein/Minerals 1 each PO DAILY 05/21/16 06/26/22 History [Ocuvite with Lutein Tablet] Fluticasone Nasal [place] [Flonase 1 spray EA NOSTRIL DAILY PRN 07/06/17 06/26/22 History Nasal [place]] flaxseed oiL [[place]-3 Flaxseed Oil] 1,000 mg PO DAILY 07/06/17 06/26/22 History Meloxicam [Mobic] 15 mg PO DAILY PRN 04/13/22 06/26/22 History methocarbamoL [Robaxin-750] 750 mg PO TID 04/13/22 06/26/22 History Allergies Allergy/AdvReac Type Severity Reaction Status Date / Time No Known Allergies Allergy Verified 06/26/22 10:40 Objective - Vital Signs Vital signs: Vital Signs Temp 98.1 F 10/15/23 13:13 Pulse 57 L 10/15/23 13:13 Resp 17 10/15/23 13:13 BP 101/61 10/15/23 13:13 Pulse Ox 100 10/15/23 13:13 FiO2 Intake & Output 10/14/23 10/15/23 10/15/23 18:59 06:59 18:59 Weight 78.018 kg - Constitutional General appearance: Present: cooperative - EENT Eyes: Present: EOMI ENT: Present: hearing grossly normal - Neck Neck: Present: normal ROM - Respiratory Respiratory: bilateral: CTA - Cardiovascular Rhythm: regular Heart sounds: normal: S1, S2 - Integumentary Integumentary Comment(s): rash under breast, area of erythema and induration left lateral chest wall consistent with a bug bite Integumentary: Present: normal turgor - Musculoskeletal Musculoskeletal: Present: gait normal - Psychiatric Psychiatric: Present: A&O x's 3, appropriate affect, intact judgment & insight - Additional findings Additional findings: Breast Exam: BRA; 36C Inspection: bilateral grade 2/3 ptosis The patient: Right breast: Multi positional exam fibrocystic changes no dominant masses or nodules of concern Right axilla: No adenopathy of concern Left breast: no dominant masses or nodules of concern fibrocystic changes, well healed scar Left axilla: No adenopathy of concern Assessment and Plan Assessment: Plan Fibrocystic breast changes bilateral mammogram on 10-11-23 BIRAD 2 personally reviewed Fibrocystic breast changes Fungal infection under the breast Probable bug bite left lateral chest wall Plan: Bilateral mammogram September 2024 with examination at that time Nystatin to area fungal infection Patient is going to follow the area of the erythema left lateral chest wall if this does not resolve she will call and we will schedule her to see dermatology CC: DR. Wood
== END ==
LOC: WWCWWP 12:47
PROVIDERS: ATTEND Surgery
DX: R92.8 Other abnormal and inconclusive findings on diagnostic imaging of breast (principal); N60.11 Diffuse cystic mastopathy of right breast; N60.12 Diffuse cystic mastopathy of left breast; N64.4 Mastodynia; B48.8 Other specified mycoses; Z80.3 Family history of malignant neoplasm of breast; Z87.891 Personal history of nicotine dependence; Z86.16 Personal history of COVID-19

== ENCOUNTER 2024-08-25 08:17 | Day surgery (SDC) | payer MEDICARE ==
[2024-08-24 10:36] VITALS: BMI 33.0
[2024-08-25] MEDS: IV FLUID CONTINUATION 1,000 ML IV ONE (08:59)
[2024-08-25 09:03] VITALS: RESP 16; TEMP 97
[2024-08-25] MEDS: LACTATED RINGERS 1,000 ML IV SCH (09:06)
[2024-08-25] MEDS ORDERED: PROPOFOL 10 MG/ML 20 ML VIAL IV ONE (09:25)
--- NOTE | 2024-08-25 09:42 | P.PCN ---
Date of Procedure: 08/25/24 Procedure(s) Performed: BRIEF HISTORY: Patient is a 69-year-old pleasant white female scheduled for an elective colonoscopy as a part of screening for history of colon polyps. Her last colonoscopy was 6 years ago and was noted to have adenoma. PROCEDURE PERFORMED: Colonoscopy. PREOPERATIVE DIAGNOSIS: Screening for history of colon polyps. IV sedation per Anesthesia. PROCEDURE: After informed consent was obtained, the patient, was brought into the endoscopy unit. IV sedation was administered by Anesthesia under continuous monitoring. Digital rectal examination was normal. Initially the Olympus CF-160 flexible video colonoscope was then inserted in the rectum, gradually advanced into the cecum without any difficulty. Careful examination was performed as the scope was gradually being withdrawn. Ileocecal valve and the appendiceal orifice were visualized and appeared normal. Prep was excellent. Mucosa of the cecum, ascending colon, transverse colon, descending colon, sigmoid colon, and rectum appeared normal. Scattered sigmoid diverticulosis. Retroflexion was performed in the rectum and no lesions were seen. The patient tolerated the procedure well. IMPRESSION: Scattered sigmoid diverticulosis No evidence of colorectal neoplasia RECOMMENDATIONS: Findings of this examination were discussed with the patient as well as her family. She was advised to be on high-fiber diet and take fiber supplements on regular basis. Recommend repeat screening colonoscopy in 10 years.
[2024-08-25 10:01] VITALS: BP 116/69; PULSE 66
== END 2024-08-25 10:26 | disposition home or self-care (01) ==
LOC: ORWHC2ENDO 08:17
PROVIDERS: ATTEND Internal Medicine Gastroenterology
DX: Z12.11 Encounter for screening for malignant neoplasm of colon (principal); K57.30 Diverticulosis of large intestine without perforation or abscess without bleeding; E78.5 Hyperlipidemia, unspecified; F41.9 Anxiety disorder, unspecified; K21.9 Gastro-esophageal reflux disease without esophagitis; Z88.8 Allergy status to other drugs, medicaments and biological substances; Z79.82 Long term (current) use of aspirin; Z86.0101 Personal history of adenomatous and serrated colon polyps; Z90.49 Acquired absence of other specified parts of digestive tract; Z90.710 Acquired absence of both cervix and uterus; Z79.899 Other long term (current) drug therapy
CPT/HCPCS: 45378; J2704

== ENCOUNTER → 2024-10-11 | Outpatient (CLI) | payer MEDICARE ==
--- NOTE | 2024-10-11 11:34 | MM ---
Reason for Exam: Screening (asymptomatic). Last screening mammogram was performed 12 month(s) ago. Patient History: Menarche at age 13. First Full-Term at age 18. Left ovary removed at age 52. Right ovary removed at age 52. Hysterectomy at age 52. Postmenopausal. Previous Hyperplasia w/o Atypia at age 67. 10/01/2022, Lumpectomy on the Left side. 10/01/2022, Benign MG pre op needle loc LT on the left side. 04/28/2022, Benign US biopsy breast VAD LT on the left side. Maternal aunt had breast cancer, age 80. Maternal aunt had breast cancer at or over age 50. Mother had breast cancer, age 72. Risk Values: Adela 5 year model risk: 4.7%. NCI Lifetime model risk: 14.8%. Prior Study Comparison: 08/18/2022 Right MG 3D diag mammo w/cad RT, [facility]. 04/06/2023 Left MG 3D diag mammo w/cad [place], [facility]. 10/11/2023 Bilateral MG 3D screening mammo w/cad, [facility]. Tissue Density: The breasts are heterogeneously dense, which may obscure small masses. Findings: Analyzed By CAD. Left breast surgical clips. Right breast: There is no suspicious group of microcalcifications or new suspicious mass. Benign-appearing calcifications right breast. Left breast: There is no suspicious group of microcalcifications or new suspicious mass. Benign-appearing calcifications left breast. Overall Assessment: Benign, BI-RAD 2 Management: Screening Mammogram of both breasts in [address] [facility] will attempt to contact patient to return for supplemental views and ultrasound if indicated. Patient should continue monthly self-breast exams. A clinical breast exam by your physician is recommended on an annual basis. This exam should not preclude additional follow-up of suspicious palpable abnormalities. Note on Adela scores and lifetime risk: 1. A Adela score greater than 3% is considered moderate risk. If this is the case, consider specialist referral to assess eligibility for a risk reducing agent. 2. If overall lifetime risk for the development of breast cancer is 20% or higher, the patient may qualify for future screening with alternating mammogram and breast MRI. [facility], , 10/11/2024 11:02 AM. Electronically signed and approved by: Ck Ayala, DO
== END | disposition home or self-care (01) ==
LOC: RADMAMWWP 09:21
PROVIDERS: ATTEND Surgery
DX: Z12.31 Encounter for screening mammogram for malignant neoplasm of breast (principal); R92.333 Mammographic heterogeneous density, bilateral breasts; R92.1 Mammographic calcification found on diagnostic imaging of breast; Z80.3 Family history of malignant neoplasm of breast; Z78.0 Asymptomatic menopausal state
CPT/HCPCS: 77063; 77067

== ENCOUNTER → 2024-10-13 | Outpatient (CLI) | payer MEDICARE ==
[2024-10-13 11:40] VITALS: BP 124/74; PULSE 60; RESP 16; TEMP 97.9
--- NOTE | 2024-10-13 11:46 | P.PN ---
Subjective Progress Note Date: 10/13/24 Principal diagnosis: fibrocystic breast changes 10-13-24 Principal diagnosis: fibrocystic breast changes Madhuri is a 68 year old white female seen in consultation for Dr. Wood regarding a left breast abnormal ultrasound finding. She had a bilateral mammogram on 08-14-21, this led to an ultrasound of the left breast on 08-22-21 which was read as BIRAD 3 and repeat left breast mammogram and ultrasound at 6 months was recommended. She had a repeat left breast mammogram on 04-13-22 and a left breast ultrasound. Nothing of concern was seen on the mammogram, but the ultrasound showed a 5 by 4 mm hypoechoic lesion for which biopsy was recommended at 11;00. This was done on 04-28-22 and was fibroadenomatoid hyperplasia with micorcalcification and background fibrocystic changes. This was reviewed with radiology and felt to be discordant and open resection was recommended. She one year ago was having some pain around the nipple in the left breast. She is not complaining of any lumps masses or nodules of concern in either breast. She is not complaining of any nipple discharge or skin changes. She has not had any recent trauma or infection in the breast. She handled the biopsy without difficulty. The recent breast biopsy is the only procedure she is ever had on her breast. This was done on 10-01-22 and was benign concordant. She underwent a mammogram of her right breast on . BIRAD 1 She was scheduled initially for surgery on the left breast on 09-08-22 was diagnosed with COVID. This was rescheduled for a discordant core biopsy on 10-01-22. Patholgy benign. Post procedure she developed a rash at the biopsy site and was followed by dermatology. note medical oncology reviewed 04-26-23 she declined chemoprevention Bilateral mammogram on 10-11-24 BIRAD 2 She does note some slight fullness in the upper outer quadrant of the left breast, and some persistent periareolar tenderness at times on the left side. She is not complaining of any other lumps masses or nodules of concern. Adela Risk 4,7% lifetime risk: 14.8% She did meet and discuss chemoprophylaxis with Dr. Neri on 04-26-2023. After all of the information she has decided to be followed conservatively and declined chemoprophylaxis. Caffeine: 1/2 caffiene 4 cups/day nicotine: none chocolate: daily BCP: 12 years Family History: mother: bilateral breast cancer in her 60's maternal aunt: breast cancer father: prostate cancer paternal grandmother: bone cancer paternal grandfather: prostate cancer Hormonal History: menarche: 13 , breast fed: no, age at first : 18 menopause: hysterectomy in her 40's not sure all of ovaries removed; bleeding no cancer hormones: not used Surgical History: ROLO, ? 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 low back pain/ scheduled for MRI 04-15-23 Spondylosis and cervical spine and in the lower back Social History: nicotine: stopped 30 years, used to smoke 1/2 PPD for 15 years alcohol: occasional drugs: none - Constitutional Constitutional: Denies chills, Denies fever - EENT Eyes: denies blurred vision, denies pain Ears: deny: decreased hearing, tinnitus Ears, nose, mouth and throat: Reports headache, Denies sore throat - Breasts Breasts: bilateral: as per HPI - Cardiovascular Cardiovascular: Denies chest pain, Denies shortness of breath - Respiratory Respiratory: Denies cough - Gastrointestinal Gastrointestinal: Denies abdominal pain, Denies diarrhea, Denies nausea, Denies vomiting - Genitourinary (Female) Genitourinary: Denies dysuria, Denies hematuria - Menstruation Menstruation: Reports post hysterectomy - Musculoskeletal Musculoskeletal: Reports as per HPI - Integumentary Integumentary: Denies pruritus, Denies rash - Neurological Comment: none - Psychiatric Psychiatric: Reports depression - Endocrine Endocrine: Denies fatigue, Denies weight change - Hematologic/Lymphatic Comment: takes baby aspirin - Allergic/Immunologic Allergic/Immunologic: Reports seasonal allergies Past Medical History Past Medical History: GERD/Reflux, Hyperlipidemia, Osteoarthritis (OA) Additional Past Medical History / Comment(s): DIVERTICULOSIS, ENVIRONMENTAL ALLERGIES. History of Any Multi-Drug Resistant Organisms: None Reported Past Surgical History: Cholecystectomy, Heart Catheterization, Hysterectomy, Tonsillectomy Additional Past Surgical History / Comment(s): laparoscopy, Heart Cath ([facility] 2017) colonoscopy, arterial bypass rt side at [facility], Right hand and Right foot surgery Past Anesthesia/Blood Transfusion Reactions: Postoperative Nausea & Vomiting (PONV) Past Psychological History: Anxiety Additional Psychological History / Comment(s): Zoloft Smoking Status: Former smoker Past Alcohol Use History: Occasional Additional Past Alcohol Use History / Comment(s): QUIT SMOKING 1994, SMOKED 1/2 PPD- SMOKED 5-10 YEARS. Past Drug Use History: None Reported - Past Family History Mother Family Medical History: Cancer Additional Family Medical History / Comment(s): BREAST CANCER Father Family Medical History: Cancer Additional Family Medical History / Comment(s): PROSTATE CANCER Medications and Allergies Home Medications Medication Instructions Recorded Confirmed Type Aspirin 81 mg PO DAILY 09/13/13 06/26/22 History Atorvastatin [Lipitor] 20 mg PO HS 09/13/13 06/26/22 History Cholecalciferol [Vitamin D3] 2,000 unit PO DAILY 09/13/13 06/26/22 History Sertraline [Zoloft] 75 mg PO DAILY 09/13/13 06/26/22 History Vits A,C,E/Lutein/Minerals 1 each PO DAILY 05/21/16 06/26/22 History [Ocuvite with Lutein Tablet] Fluticasone Nasal [place] [Flonase 1 spray EA NOSTRIL DAILY PRN 07/06/17 06/26/22 History Nasal [place]] flaxseed oiL [[place]-3 Flaxseed Oil] 1,000 mg PO DAILY 07/06/17 06/26/22 History Meloxicam [Mobic] 15 mg PO DAILY PRN 04/13/22 06/26/22 History methocarbamoL [Robaxin-750] 750 mg PO TID 04/13/22 06/26/22 History Allergies Allergy/AdvReac Type Severity Reaction Status Date / Time No Known Allergies Allergy Verified 06/26/22 10:40 Objective - Constitutional General appearance: Present: cooperative - EENT Eyes: Present: EOMI ENT: Present: hearing grossly normal - Neck Neck: Present: normal ROM - Respiratory Respiratory: bilateral: CTA - Cardiovascular Rhythm: regular Heart sounds: normal: S1, S2 - Integumentary Integumentary: Present: normal turgor - Musculoskeletal Musculoskeletal: Present: gait normal - Psychiatric Psychiatric: Present: A&O x's 3, appropriate affect, intact judgment & insight - Additional findings Additional findings: Breast Exam: BRA; 36C Inspection: bilateral grade 2/3 ptosis Palpation: Right breast: Multi positional exam fibrocystic changes no dominant masses or nodules of concern Right axilla: No adenopathy of concern Left breast: no dominant masses or nodules of concern fibrocystic changes, well healed scar; some increased fullness is noted in the upper outer quadrant area of the left breast which is asymmetric to the right side Left axilla: No adenopathy of concern Assessment and Plan Assessment: Plan Fibrocystic breast changes bilateral mammogram on 10-11-24 BIRAD 2 personally reviewed Fibrocystic breast changes Plan: ultrasound of hte left breat UOQ with appointment after this is done Bilateral mammogram September 2025 with examination at that time CC: DR. Wood
== END ==
LOC: WWCWWP 10:44
PROVIDERS: ATTEND Surgery
DX: N60.19 Diffuse cystic mastopathy of unspecified breast (principal); Z91.041 Radiographic dye allergy status; Z87.891 Personal history of nicotine dependence

== ENCOUNTER → 2024-10-19 | Outpatient (CLI) | payer MEDICARE ==
--- NOTE | 2024-10-19 15:39 | USB ---
Reason for Exam: Clinical finding. Patient History: Menarche at age 13. First Full-Term at age 18. Left ovary removed at age 52. Right ovary removed at age 52. Hysterectomy at age 52. Postmenopausal. Previous Hyperplasia w/o Atypia at age 67. 10/01/2022, Lumpectomy on the Left side. 10/01/2022, Benign MG pre op needle loc LT on the left side. 04/28/2022, Benign US biopsy breast VAD LT on the left side. Maternal aunt had breast cancer, age 80. Maternal aunt had breast cancer at or over age 50. Mother had breast cancer, age 72. Risk Values: Adela 5 year model risk: 4.7%. NCI Lifetime model risk: 14.8%. Technique: Method: Targeted. Prior Study Comparison: 04/06/2023 Left MG 3D diag mammo w/cad [facility], [facility]. 10/11/2023 Bilateral MG 3D screening mammo w/cad, [facility]. 10/11/2024 Bilateral MG 3D screening mammo w/cad, [facility]. Findings: The upper outer quadrant of the left breast, the axilla of the left breast and the retroareolar of the left breast were scanned. Targeted ultrasound upper outer quadrant corresponding to the patient's area of asymmetric fullness. Additional scanning of the subareolar region and axilla. At 1:00, 5 cm from the nipple, there is a small 6 x 5 x 4 mm intramammary lymph node. At 3:00, 5 cm from nipple, there is a tiny 5 mm cyst. At the 1 to 2:00 position corresponding to a palpable area felt while scanning with the transducer, there is a lobulated 3.2 x 2.6 x 2.0 cm isoechoic circumscribed area with appearance similar to surrounding fat lobules. 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 No suspicious solid or cystic lesion or axillary adenopathy. Overall Assessment: Benign, BI-RAD 2 Management: Screening Mammogram of both breasts in 1 year. Surgical Consultation of the left breast. For findings which suggest a 2.2 cm breast lipoma at the patient's left upper outer quadrant area of asymmetric fullness. Consider surgical evaluation if symptomatic. See note below in regards to the patient's increased 5 year Adela score. A clinical breast exam by your physician is recommended on an annual basis and results should be correlated with mammographic findings. This exam should not preclude additional follow-up of suspicious palpable abnormalities. Results were given to the patient verbally at the time of exam. Note on Adela scores and lifetime risk: 1. A Adela score greater than 3% is considered moderate risk. If this is the case, consider specialist referral to assess eligibility for a risk reducing agent. 2. If overall lifetime risk for the development of breast cancer is 20% or higher, the patient may qualify for future screening with alternating mammogram and breast MRI. [facility], , 10/19/2024 3:13 PM. Electronically signed and approved by: Olga Lidia Koehler M.D. Radiologist
== END | disposition home or self-care (01) ==
LOC: RADUSWWP 14:43
PROVIDERS: ATTEND Surgery
DX: N63.20 Unspecified lump in the left breast, unspecified quadrant (principal); Z78.0 Asymptomatic menopausal state; Z80.3 Family history of malignant neoplasm of breast